=== PATIENT | male | born 1955 | race Caucasian/White ===

== ENCOUNTER 2017-11-25 12:00 | Outpatient (CLI) | payer OTHER ==
--- NOTE | 2017-11-25 14:30 | MRI ---
MRI LUMBAR SPINE PERFORMED WITHOUT CONTRAST ENHANCEMENT: Date: 11/25/17 HISTORY: Chronic low back pain, right leg radiculopathy. FINDINGS: Vertebral bodies are normal in height. Severe degenerative disc narrowing is seen at all vertebral kenia dy levels. No significant periaortic adenopathy is visualized. T2 hyperintense lesion involving the r ight kidney is statistically most likely a cyst. T11-12: Posterior osteophytic and disc changes are associated with a mild to moderate degree of canal narrowi ng with degenerative facet changes. T12-L1: Degenerative facet changes without significant canal or foraminal stenosis. L1-2: Disc bulge with facet hypertrophic changes is seen. No canal stenosis. There is some mild to moderate left-sided foraminal narrowing. L2-3: Disc bulge with facet and ligamentous hypertrophic changes are associated with a severe degree of can al stenosis and marked right-sided foraminal narrowing. L3-4: Severe canal stenosis is present at this level. Asymmetric right-sided facet changes are present. The re is moderate bilateral foraminal narrowing noted. L4-5: Moderately severe canal stenosis also present at this level, again with prominent degenerative facet changes. There is fairly pronounced bilateral foraminal stenosis. L5-S1: No central canal stenosis. There is some mild to moderate left-sided foraminal narrowing. IMPRESSION: Multilevel canal and foraminal stenosis. POS: [facility]
--- NOTE | 2017-11-25 14:46 | MRI ---
MRI CERVICAL SPINE: History: Cervical radiculopathy. M54.12 Technique: Multiplanar, multisequence noncontrast enhanced MRI images of the cervical spine obtained. FINDINGS: C1-2: Unremarkable. C2-3: There is a broad based central disc bulge minimally but not significantly compressing the theca l sac. The right neural foramen is patent. There is moderate left C2-3 neural foraminal narrowing due to osteophyte encroachment into the left C2-3 neural foramen. C3-4: Disc desiccation is seen. There is a broad based disc osteophyte complex centrally compressing the thecal sac resulting in moderate to severe central and lateral recess stenosis. There is severe b ilateral C3-4 neural foraminal narrowing due to uncal vertebral osteophyte hypertrophy. } C4-5: Disc desiccation is seen. There is a broad based disc osteophyte complex centrally compressing the thecal sac resulting in a moderate degree of central spinal stenosis. There is moderate to severe bilateral C4-5 neural foraminal narrowing due to uncal vertebral osteophyte hypertrophy. C5-6: Disc desiccation is seen. There is a broad based disc osteophyte complex centrally compressing the thecal sac resulting in severe C5-6 central spinal stenosis compressing the thecal sac and spinal cord. There is moderate right C5-6 and mild left C5-6 neural foraminal narrowing due to osteophyte e ncroachment. C6-7: There is disc desiccation. There is broad based disc osteophyte complex centrally compressing t he thecal sac resulting in a moderate degree of central stenosis. Moderate to severe bilateral C6-7 n eural foraminal narrowing is seen due to uncal vertebral osteophyte hypertrophy. C7-T1: Disc desiccation is seen. There is a broad based disc osteophyte complex centrally compressing the thecal sac resulting in moderate central spinal stenosis. Mild lateral recess stenosis also seen bilaterally. There is mild bilateral C7-T1 neural foraminal narrowing due to osteophyte encroachment . There is an area of lucency in the paracentral aspect of the body of the odontoid. This may represent a possible synovial cyst which is eroded into the CT vertebra. Correlation with high resolution CT i mages may be of use to fully characterize. IMPRESSION: Multilevel central disc osteophyte complexes with compression of the thecal sac and neural foraminal narrowing. The most significant degree of stenosis appears to be C3-4, lesser in degree C4-5 as well as the C5-6 level. There are multiple levels of thecal sac compression with some cord compression but no definite evidence of cord signal abnormality seen. POS: [facility]
--- NOTE | 2017-11-25 14:54 | RAD ---
FOUR VIEWS CERVICAL SPINE INCLUDING AP AND LATERAL AND FLEXION AND XTENSION VIEWS OF CERVICAL SPINE: HISTORY: Cervical radiculopathy, M54.12. FINDINGS: Four views cervical spine demonstrate mild anterolisthesis of C4 on C5. Disk space height loss is se en at C5-6 and C6-7. There is also disk space height loss with anterior and posterior osteophytes at C3-4. No significant evidence of lb- or retrolisthesis seen on flexion or extension views. IMPRESSION: Changes of spondylosis with disk space height loss and anterior and posterior osteophytes at C3-4, C5 -6, and C6-7. No significant evidence of cervical spine fracture is seen. POS: [facility]
--- NOTE | 2017-11-25 15:09 | RAD ---
LUMBAR SPINE 4 VIEWS: HISTORY: Lumbar radiculopathy. COMPARISON: None. CORRELATION: Lumbar spine MRI 12/05/2017. FINDINGS: AP, lateral neutral, lateral flexion, and lateral extension of the lumbar spine demonstrate 5 lumbar- type vertebral bodies. There is loss of disk space height and osteophyte formation throughout the nini mbar spine. Prominent osteophytes are noted throughout the lumbar spine. In the neutral weight bear ing position, there is no significant spondylolisthesis. No abnormal motion upon extension or flexio n. There appears to be vacuum disk phenomenon at L1-L2. There is extensive posterior element hypertroph y throughout the lumbar spine. IMPRESSION: 1. Degenerative change of the lumbar spine without significant spondylolisthesis or spondylosis. 2. Degenerative changes posterior elements as above. 3. Extensive degenerative change of lumbar spine as above. 3. Osteophyte formation as detailed above. POS: [facility]
== END 2017-11-25 12:01 | disposition home or self-care (01) ==
LOC: BICMRI 12:00
PROVIDERS: ATTEND Physician Assistant Surgical
DX: M47.26 Other spondylosis with radiculopathy, lumbar region (principal); M47.22 Other spondylosis with radiculopathy, cervical region; M48.061 Spinal stenosis, lumbar region without neurogenic claudication; M99.83 Other biomechanical lesions of lumbar region; M99.81 Other biomechanical lesions of cervical region
CPT/HCPCS: 72050; 72110; 72141; 72148

== ENCOUNTER 2018-12-04 07:11 | Outpatient (CLI) | payer MEDICARE ==
[2018-12-04 11:25] LABS: Hemoglobin 12.3 g/dL (14.0-18.0); Mean Corpuscular HGB CONC 33.8 g/dL (32.0-36.0); Mean Corpuscular Hemoglobin 33.5 pg (27.0-31.0); Mean Corpuscular Volume 99.2 fL (78.0-98.0); Mean Platelet Volume 7.8 fL (7.4-10.4); Platelet Count 197 thou/uL (130-400); RBC Distribution Width 11.1 % (11.5-14.5); Red Blood Cell (RBC) Count 3.66 mill/uL (4.70-6.10); White Blood Cell (WBC) Count 6.3 thou/uL (4.8-10.8)
[2018-12-04 11:30] LABS: PTT 30.9 SEC (22.9-36.1); Prothrombin Time 12.9 SEC (12.0-14.7)
== END 2018-12-04 07:12 | disposition home or self-care (01) ==
LOC: LABBT 07:11
PROVIDERS: ATTEND Surgery
DX: Z01.818 Encounter for other preprocedural examination (principal); M47.12 Other spondylosis with myelopathy, cervical region; M48.02 Spinal stenosis, cervical region
CPT/HCPCS: 85027; 85610; 85730; 87081; 93005; 93010

== ENCOUNTER 2018-12-04 08:55 | Outpatient (CLI) | payer MEDICARE ==
--- NOTE | 2018-12-04 12:39 | CT ---
CT CERVICAL SPINE WITHOUT CONTRAST: INDICATIONS: Spondylosis. Neck pain. FINDINGS: There are degenerative changes throughout the cervical spine. Loss of disk space is most pronounced a t C3-C4, C5-C6 and C6-C7. There are anterior and lateral osteophytes in the cervical vertebrae and th ere is posterior spondylosis at multiple levels. Benign cystic changes are seen in the C2 and C4 vert ebrae. C2-C3: At the C2-C3 disk there is a broad-based disk bulge abutting the anterior cord. Facet hypertro phy is prominent and there is left foraminal stenosis due to facet and uncinate hypertrophy. C3-C4: Posterior disk bulge and spondylosis is prominent. These changes produce cord compression and moderate central canal stenosis. Bilateral foraminal stenosis is present with severe foraminal stenos is on the left at this level. C4-C5: Posterior disk bulge and spondylosis abut the anterior cord. Mild foraminal narrowing at this level. C5-C6: Posterior spondylosis is prominent centrally and to the right. These changes produce cord comp ression anteriorly on the right with moderate central canal stenosis. Right foraminal stenosis second iris to facet and uncinate hypertrophy. C6-C7: There is slight posterior listhesis. Mild disk bulge and spondylosis. These changes do mildly compress the cord and there is bilateral foraminal stenosis secondary to facet and uncinate hypertrop hy. C7-T1: Slight anterior listhesis. Posterior disk bulge and spondylosis abut and mildly compress the c ord. Evaluation at this level is limited due to artifact from soft tissue attenuation. IMPRESSION: Degenerative disk changes at multiple levels with posterior spondylitic changes producing cord compre ssion and foraminal stenosis at multiple levels as described. POS: [facility]
== END 2018-12-04 08:56 | disposition home or self-care (01) ==
LOC: CT 08:55
PROVIDERS: ATTEND Surgery
DX: M47.12 Other spondylosis with myelopathy, cervical region (principal); M50.00 Cervical disc disorder with myelopathy, unspecified cervical region; M48.02 Spinal stenosis, cervical region
CPT/HCPCS: 72125; 85027; 85610; 85730; 87081; 93005

== ENCOUNTER 2018-12-04 10:00 | Inpatient (IN) | payer MEDICARE ==
[2018-12-04 12:00] LABS: ALT (SGPT) 18 U/L (8-55); AST (SGOT) 16 U/L (5-34); Albumin 4.6 g/dL (3.4-4.8); Alkaline Phosphatase 71 U/L (40-110); Anion Gap 12 mmol/L (10-20); BUN (Urea Nitrogen) 25 mg/dL (8.4-25.7); Bilirubin, Total 0.6 mg/dL (0.2-1.2); Calc. Creatinine Clearance 87 mL/min (70-130); Calcium 9.6 mg/dL (7.8-10.44); Carbon Dioxide 25 mmol/L (23-31); Cardiac Risk 2.5 (Less than 4.5); Chloride 97 mmol/L (98-107); Cholesterol 155 mg/dl (< 200 Desired); Estimated GFR-MDRD 55; Globulin 2.5 g/dL (2.4-3.5); Glucose 91 mg/dL (80-115); HDL Cholesterol 62 mg/dL (>60 Neg Risk); LDL Cholesterol, Calculated 76 mg/dL; Magnesium 1.8 mg/dL (1.6-2.6); Protein, Total 7.1 g/dL (5.8-8.1); Sodium 130 mmol/L (136-145); Triglycerides 87 mg/dL (Less than 150)
[2018-12-11] MEDS ORDERED: Sodium Chloride 0.9% 20 ML ONE (06:27)
[2018-12-11] MEDS ORDERED: Bacitracin Zinc Ointment 30 gm TUBE ONE (06:27)
[2018-12-11] MEDS ORDERED: Thrombin 5000 UNITS/5 ML VIAL ONE (06:27)
[2018-12-11] MEDS ORDERED: Albumin 5% 500 ML ONE (06:53)
[2018-12-11] MEDS ORDERED: Fentanyl 100 MCG/2 ML VIAL ONE ×4 (07:13→15:39)
[2018-12-11] MEDS ORDERED: Ketamine 50 MG/ML (10ML VIAL) ONE (08:42)
[2018-12-11] MEDS ORDERED: Vecuronium 10 MG VIAL ONE ×2 (09:53→12:08)
[2018-12-11] MEDS ORDERED: Metoclopramide HCl 10 MG/2 ML VIAL ONE (12:08)
[2018-12-11] MEDS ORDERED: Dexamethasone 20 MG/5 ML VIAL ONE (12:08)
[2018-12-11] MEDS ORDERED: PHENYLEPHRINE-NS 100 MCG/ML 10 ML SYRINGE ONE (12:08)
[2018-12-11] MEDS ORDERED: Rocuronium Bromide 10 MG/ML (10ML VIAL) ONE (12:08)
[2018-12-11] MEDS ORDERED: Esmolol 100 MG/10 ML VIAL ONE (12:08)
[2018-12-11] MEDS ORDERED: Ondansetron PF 4 MG/2 ML Vial ONE (12:08)
[2018-12-11] MEDS ORDERED: Lidocaine 1% PF 5 ML VIAL ONE (12:08)
[2018-12-11] MEDS ORDERED: PROPOFOL 200 MG/20 ML VIAL ONE (12:08)
[2018-12-11] MEDS ORDERED: Glycopyrrolate 0.2 MG/ML 5 ML SYRINGE ONE (12:08)
[2018-12-11] MEDS ORDERED: Midazolam HCl 2 mg/2 ml Vial ONE (13:30)
[2018-12-11] MEDS ORDERED: HYDROmorphone 2 MG/ML VIAL SLOW IVP PRN (14:30)
[2018-12-11] MEDS ORDERED: PACU-Morphine 4MG/ML VIAL SLOW IVP PRN (14:30)
[2018-12-11] MEDS ORDERED: Promethazine HCl 25 MG/ML VIAL IM PRN ×2 (14:30→15:57)
[2018-12-11] MEDS ORDERED: Promethazine HCl 25 MG/ML VIAL SLOW IVP PRN (14:30)
[2018-12-11] MEDS ORDERED: Morphine Sulfate 2 MG/ML SYRINGE SLOW IVP PRN (14:30)
[2018-12-11] MEDS ORDERED: Ondansetron HCl/PF 4 MG/2 ML Vial IVP PRN (14:30)
[2018-12-11] MEDS ORDERED: Acetaminophen 325 MG TAB PO PRN (15:20)
[2018-12-11] MEDS ORDERED: Mag-Al 1200 mg/1200 mg/30 ML UDCUP PO PRN (15:20)
[2018-12-11] MEDS ORDERED: Ondansetron PF 4 MG/2 ML Vial IVP PRN ×2 (15:20→15:57)
[2018-12-11] MEDS ORDERED: Bisacodyl 10 MG SUPP PR PRN (15:20)
[2018-12-11] MEDS ORDERED: Fleet Enema 133 ML BOT PR PRN (15:20)
[2018-12-11] MEDS ORDERED: Milk Of Magnesia 30 ML UDCUP PO PRN (15:20)
[2018-12-11] MEDS ORDERED: Diazepam 10 MG/2 ML SYRINGE IVP PRN (15:41)
[2018-12-11] MEDS ORDERED: diphenhydrAMINE 25 MG CAP PO PRN (15:57)
[2018-12-11] MEDS ORDERED: diphenhydrAMINE 50 MG/ML VIAL IM PRN (15:57)
[2018-12-11] MEDS ORDERED: diphenhydrAMINE 50 MG/ML VIAL IVP PRN (15:57)
[2018-12-11] MEDS ORDERED: Naloxone HCl 0.4 mg/ml Vial IV PRN (15:57)
[2018-12-11] MEDS ORDERED: Zolpidem Tartrate 5 MG TAB PO PRN (15:57)
[2018-12-11] MEDS ORDERED: [UNRECOGNIZED DRUG - REMARK] FS SCH (16:00)
[2018-12-11] MEDS ORDERED: Communication Order-Pharmacy FS PRN (16:00)
[2018-12-11] MEDS ORDERED: HYDROmorphone 2 MG/ML VIAL ONE (16:03)
[2018-12-11 17:11] VITALS: BMI 30.9
[2018-12-11] MEDS: Sodium Chloride 0.9% 1,000 ML IV SCH (17:42)
[2018-12-11] MEDS: CEFAZOLIN 2 GM in Premix Bag 1 BAG IVPB SCH (18:35)
[2018-12-11] MEDS: Ketorolac Tromethamine 30 MG/ML VIAL IVP PRN (19:45)
[2018-12-12] MEDS: CEFAZOLIN 2 GM in Premix Bag 1 BAG IVPB SCH ×4 (00:10→16:51)
[2018-12-12] MEDS: Ketorolac Tromethamine 30 MG/ML VIAL IVP PRN ×4 (01:02→20:22)
[2018-12-12] MEDS: Sodium Chloride 0.9% 1,000 ML IV SCH (05:18)
[2018-12-12 05:37] LABS: #Lymphocytes 1.2 thou/uL (1.20-3.40); #Monocytes 1.3 thou/uL (0.11-0.59); #Neutrophils 7.8 thou/uL (1.40-6.50); %Basophils 0.3 % (0.0-1.0); %Eosinophils 0.1 % (0.0-10.0); %Lymphocytes 11.8 % (21.0-51.0); %Monocytes 12.2 % (0.0-10.0); %Neutrophils 75.5 % (42.0-75.0); Hemoglobin 9.9 g/dL (14.0-18.0); Mean Corpuscular HGB CONC 34.4 g/dL (32.0-36.0); Mean Corpuscular Volume 98.8 fL (78.0-98.0); Mean Platelet Volume 7.4 fL (7.4-10.4); Platelet Count 197 thou/uL (130-400); Red Blood Cell (RBC) Count 2.92 mill/uL (4.70-6.10); White Blood Cell (WBC) Count 10.4 thou/uL (4.8-10.8)
[2018-12-12 05:59] LABS: Anion Gap 11 mmol/L (10-20); BUN (Urea Nitrogen) 19 mg/dL (8.4-25.7); Calc. Creatinine Clearance 91 mL/min (70-130); Calcium 8.7 mg/dL (7.8-10.44); Carbon Dioxide 26 mmol/L (23-31); Chloride 98 mmol/L (98-107); Estimated GFR-MDRD 62; Glucose 111 mg/dL (80-115); Sodium 131 mmol/L (136-145)
--- NOTE | 2018-12-12 08:21 | OP ---
DATE OF PROCEDURE: 12/11/2018 LOCATION: OR 11. WOUND CLASSIFICATION: Type 1 wound. ORGANIC GARDENING TEACHER: Mikael Gonzalez PA-C PREPROCEDURE DIAGNOSIS: Cervical stenosis circumferentially with spinal cord compression, neurologic decline. POSTPROCEDURE DIAGNOSIS: Cervical stenosis circumferentially with spinal cord compression, neurologic decline. PROCEDURES PERFORMED: 1. Anterior C3-C4, C4-C5, C5-C6, and C6-C7 diskectomies for decompression of spinal cord, placement of interbody spacer, packed with local bone autograft obtained at same incision, allograft for arthrodesis C3-C4, C4-C5, C5-C6, and C6-C7. 2. Anterior cervical plate and screw fixation, C3, C4, C5, C6, and C7. 3. Fusion C3, C4, C5, C6, C7 anteriorly. 4. Use of operative microscope for microdissection. 5. Cervical laminectomy, C3, C4, C5, C6, C7. 6. Posterolateral mass fusion, C3, C4, C5, C6, C7. 7. Instrumentation placed posterolaterally, C3, C4, C5, C6, C7. DESCRIPTION OF PROCEDURE: After informed consent was obtained from the patient, the patient was brought to the OR. Proper patient, pause, and identification were carried out. He was placed under excellent general endotracheal anesthesia and positioned supine on the OR table and kept in cervical spine in neutral position. All appropriate points were padded. We identified the C3, C4, C5, C6, and C7 segments and an anterior right oblique sided incision to allow for approach to this region. This area was sterilely cleansed, prepared, and draped. Proper patient, pause, and identification were carried out. The wound was then opened with combination of sharp, monopolar, and blunt dissection, and now we proceeded lateral to the larynx, pharynx, tracheoesophageal bundle, and medial to the right carotid sheath. We identified the prevertebral layer of deep cervical fascia and the C3, C4, C5, C6, and C7 segments were exposed with retraction of the longus colli muscles bilaterally. Distraction then occurred at C3-C4 diskectomy. We then performed a C3-C4 decompression of spinal cord nerve roots. Interbody space was packed with graft and placed at C3-C4 for initiation of arthrodesis. Following endplate preparation, the procedure was then repeated at C4-C5, C5-C6, and C6-C7, all in its entirety. We reconstructed the patient's deformity into normal cervical lordosis. Microscope was used for microdissection. Microscope was removed. Anterior cervical plate and screw fixation then occurred at C3, C4, C5, C6, and C7 with final tightening. We then closed the wound in anatomic layers following meticulous hemostasis and irrigation. The patient was then placed in pins and flipped prone, and linear ceci was drawn out posteriorly to allow for approach at C3, C4, C5, C6, C7 segments posteriorly. This region was sterilely cleansed, prepared, and draped. Proper patient, pause, and identification were carried out. The wound was then opened with combination of sharp, monopolar, and blunt dissection. C3, C4, C5, C6, and C7 lamina, spinous processes, and facet complexes were exposed with protection of C2-C3 and the C7-T1. We then decorticated the posterolateral regions with local bone autograft and allograft at the time of incision out over this region for the initiation of arthrodesis. The wound was copiously irrigated. Meticulous hemostasis performed throughout. The wound was then closed in anatomic layers following with placing vancomycin powder. The patient emerged from anesthesia. Job ID: [id number]
[2018-12-12] MEDS: Amlodipine 10 MG TAB PO SCH (08:33)
[2018-12-12] MEDS: Atorvastatin Calcium 40 MG TAB PO SCH (08:34)
[2018-12-12] MEDS: Cyanocobalamin (Vitamin B-12) 1,000 MCG TAB PO SCH (08:35)
[2018-12-12] MEDS: Furosemide 20 MG TAB PO SCH (08:36)
[2018-12-12] MEDS: Hydrochlorothiazide 25 MG TAB PO SCH (08:36)
[2018-12-12] MEDS: Famotidine 20 MG TAB PO SCH (08:36)
[2018-12-12] MEDS: Losartan 25 MG TAB PO SCH (08:36)
[2018-12-12] MEDS: Multivit, Therapeutic 1 TAB PO SCH (08:37)
[2018-12-12] MEDS: tiZANidine HCl 4 MG TAB PO PRN ×2 (08:38→16:32)
[2018-12-12] MEDS ORDERED: Dexamethasone 4 mg/ml Vial SLOW IVP SCH (09:00)
[2018-12-12] MEDS ORDERED: (Gluc Su/Chondro Su A/Vit C/Mn [Glucosamine 1,500 Complex Capsu PO SCH (09:00)
[2018-12-12] MEDS ORDERED: Pantoprazole 40 MG VIAL IVP SCH (09:00)
--- NOTE | 2018-12-12 12:59 | PRG ---
DATE OF SERVICE: 12/12/2018 Mr. Guardado is postop day #1, following ACDF with Dr. Garcia yesterday. He is in the ICU for severe myelopathy, but today he looks to be doing extraordinarily well. He is seated at the bedside chair, drinking. He is on a full liquid diet at the moment. He reports significant dysphagia, but has no dysphonia. He has been ambulating in the halls in the ICU already today. We will move him to the surgical floor this afternoon. His drain output has been a total of 65 in the last 14 hours. We will leave that probably until tomorrow morning. He is pending PT and OT evaluations and then hopefully rehab placement, but this will likely happen after the weekend. Job ID: [id number]
[2018-12-12] MEDS: fentaNYL Citrate/PF 2,000 MCG in Sodium Chloride 0.9% 60 ML IV PRN (14:02)
[2018-12-12] MEDS ORDERED: CEFAZOLIN 2 GM in Premix Bag 1 BAG IVPB SCH (16:00)
[2018-12-13] MEDS: tiZANidine HCl 4 MG TAB PO PRN ×3 (00:24→18:27)
[2018-12-13] MEDS: CEFAZOLIN 2 GM in Premix Bag 1 BAG IVPB SCH ×3 (00:24→15:39)
[2018-12-13] MEDS ORDERED: guaiFENesin ER 600 MG TAB PO PRN (07:25)
[2018-12-13] MEDS: Losartan 25 MG TAB PO SCH (09:00)
[2018-12-13] MEDS: Famotidine 20 MG TAB PO SCH (09:02)
[2018-12-13] MEDS: Furosemide 20 MG TAB PO SCH (09:04)
[2018-12-13] MEDS ORDERED: Chloraseptic Spray 180 ml Bottle PO PRN (09:04)
[2018-12-13] MEDS: Hydrochlorothiazide 25 MG TAB PO SCH (09:04)
[2018-12-13] MEDS: Multivit, Therapeutic 1 TAB PO SCH (09:11)
[2018-12-13] MEDS: Amlodipine 10 MG TAB PO SCH (09:11)
[2018-12-13] MEDS: Atorvastatin Calcium 40 MG TAB PO SCH (09:11)
[2018-12-13] MEDS: Cyanocobalamin (Vitamin B-12) 1,000 MCG TAB PO SCH (09:11)
[2018-12-13] MEDS: fentaNYL Citrate/PF 2,000 MCG in Sodium Chloride 0.9% 60 ML IV PRN (10:01)
[2018-12-13] MEDS: Diabetic Tussin 200 MG/10 ML UDCUP PO PRN ×2 (10:02→15:39)
--- NOTE | 2018-12-13 11:08 | PRG ---
DATE OF SERVICE: 12/13/2018 SUBJECTIVE: Mr. Guardado is postoperative day 2 following anterior posterior neck fusion with Dr. Garcia. He has significant dysphagia, was on Toradol and then last night this was discontinued. He apparently had a really rough night. He was coughing and producing a lot of phlegm and had extreme difficulty swallowing. This is still the case this morning. His drain because of the coughing seems to have increased his output, so we will leave that in. This morning, we will start some dexamethasone twice a day. I will put him on Protonix for GI prophylaxis. We will also start him on guaifenesin and Chloraseptic spray p.r.n. He is awaiting rehab and Case Management has submitted all of their paperwork. I will reach out this morning to the weekend liaison at [facility] to come by and have a discussion with them. I went over this with the patient and his at bedside. They anticipate and look forward to that conversation, and hopefully, will be able to move forward with rehab placement in the next 48 hours. Otherwise, the patient seems to be doing well, will ambulate more in the hallways. I will plan to see him in the morning. Job ID: [id number]
[2018-12-13] MEDS ORDERED: Dexamethasone 10 MG/ML VIAL SLOW IVP SCH (15:30)
[2018-12-13] MEDS: Dexamethasone 4 MG in Sodium Chloride 0.9% 50 ML IVPB SCH (21:49)
[2018-12-14] MEDS: CEFAZOLIN 2 GM in Premix Bag 1 BAG IVPB SCH ×2 (00:32→08:38)
[2018-12-14] MEDS: tiZANidine HCl 4 MG TAB PO PRN ×2 (02:42→10:26)
--- NOTE | 2018-12-14 07:25 | PRG ---
DATE OF SERVICE: 12/14/2018 Mr. Mckay is resting comfortably in his room. He has improved pain management as compared to the last 24 to 48 hours. He continues to use a STEEL BUFFER, although our plan today is to transition him from the STEEL BUFFER to oral medicines. Dysphagia has made that somewhat prohibitive in the last couple of days, but I think he is swallowing better, where he can tolerate it at this point in time. I removed the drain anteriorly as there was minimal output. I have also removed the anterior bandage. His main pain complaint is that of posterior cervical neck pain. He has been mobilizing slowly. We will continue to mobilize him as we transition him from the STEEL BUFFER to oral medicines. We await word from rehab as to whether he has been approved. Once approval has taken place, he can transition to there at any time. Job ID: [id number]
[2018-12-14] MEDS: Dexamethasone 4 MG in Sodium Chloride 0.9% 50 ML IVPB SCH (08:40)
[2018-12-14] MEDS: Losartan 25 MG TAB PO SCH (08:41)
[2018-12-14] MEDS: Cyanocobalamin (Vitamin B-12) 1,000 MCG TAB PO SCH (08:41)
[2018-12-14] MEDS: Atorvastatin Calcium 40 MG TAB PO SCH (08:42)
[2018-12-14] MEDS: Hydrochlorothiazide 25 MG TAB PO SCH (08:42)
[2018-12-14] MEDS: Famotidine 20 MG TAB PO SCH (08:43)
[2018-12-14] MEDS: Furosemide 20 MG TAB PO SCH (08:43)
[2018-12-14] MEDS: Amlodipine 10 MG TAB PO SCH (08:43)
[2018-12-14] MEDS: Multivit, Therapeutic 1 TAB PO SCH (08:43)
[2018-12-14] MEDS ORDERED: Pantoprazole 40 MG VIAL IVP SCH (09:00)
[2018-12-14] MEDS ORDERED: HYDROcodone/Acetaminophen 7.5/325 mg Tablet PO PRN (09:43)
[2018-12-14] MEDS: HYDROcodone/Acetaminophen 7.5/325 mg Tablet PO PRN ×2 (10:26→14:45)
[2018-12-14 11:25] VITALS: BP 115/69; TEMP 97.6
== END 2018-12-14 16:37 | DRG 454 ==
LOC: SURG A 12-11 05:41 → CCU 12-11 13:24 → SURG B 12-12 14:05
PROVIDERS: ADMIT Surgery; ATTEND Surgery
PROC: 0RG20A0 Fusion of 2 or more Cervical Vertebral Joints with Interbody Fusion Device, Anterior Approach, Anterior Column, Open Approach (ICD-10-PCS; principal; 2018-12-11)
PROC: 0RG2071 Fusion of 2 or more Cervical Vertebral Joints with Autologous Tissue Substitute, Posterior Approach, Posterior Column, Open Approach (ICD-10-PCS; 2018-12-11)
PROC: 01N10ZZ Release Cervical Nerve, Open Approach (ICD-10-PCS; 2018-12-11)
PROC: 0RB30ZZ Excision of Cervical Vertebral Disc, Open Approach (ICD-10-PCS; 2018-12-11)
DX: M48.02 Spinal stenosis, cervical region (principal); M47.12 Other spondylosis with myelopathy, cervical region; E78.5 Hyperlipidemia, unspecified; I10 Essential (primary) hypertension; E66.9 Obesity, unspecified; R26.9 Unspecified abnormalities of gait and mobility; R13.10 Dysphagia, unspecified; Z68.31 Body mass index [BMI] 31.0-31.9, adult
CPT/HCPCS: 36415; 76000; 80048; 80053; 80061; 83735; 85025; 86850; 86900; 86901; C9113; J0131; J0690; J1100; J1170; J1885; J2250; J3010; J3370; J3490; P9045

== ENCOUNTER 2020-01-13 13:06 | Inpatient (IN) | payer MEDICARE ==
[2020-01-13 13:57] LABS: #Lymphocytes 0.5 thou/uL (1.20-3.40); #Monocytes 0.3 thou/uL (0.11-0.59); #Neutrophils 7.8 thou/uL (1.40-6.50); %Basophils 0.1 % (0.0-1.0); %Eosinophils 0.1 % (0.0-10.0); %Lymphocytes 6.2 % (21.0-51.0); %Monocytes 3.3 % (0.0-10.0); %Neutrophils 90.4 % (42.0-75.0); Hemoglobin 12.1 g/dL (14.0-18.0); Mean Corpuscular HGB CONC 35.5 g/dL (32.0-36.0); Mean Corpuscular Hemoglobin 34.4 pg (27.0-31.0); Mean Corpuscular Volume 96.7 fL (78.0-98.0); Mean Platelet Volume 7.9 fL (7.4-10.4); Platelet Count 173 thou/uL (130-400); RBC Distribution Width 11.6 % (11.5-14.5); Red Blood Cell (RBC) Count 3.53 mill/uL (4.70-6.10); White Blood Cell (WBC) Count 8.7 thou/uL (4.8-10.8)
[2020-01-13] MEDS ORDERED: Dexamethasone 10 MG/ML VIAL ONE (14:08)
--- NOTE | 2020-01-13 14:16 | RAD ---
Exam: Chest one view HISTORY:Hypoxia. COVID positive patient. Comparison: None FINDINGS: Cardiac silhouette: Normal Aorta: Unremarkable Pulmonary vessels: Normal Costophrenic angles: Clear LUNGS: Multifocal interstitial and alveolar opacities. Pneumothorax: None Osseous abnormalities: Cervical fusion hardware, incompletely evaluated IMPRESSION: Multifocal COVID pneumonia.
[2020-01-13 14:20] LABS: ALT (SGPT) 46 U/L (8-55); AST (SGOT) 74 U/L (5-34); Albumin 3.8 g/dL (3.4-4.8); Alkaline Phosphatase 134 U/L (40-110); Anion Gap 18 mmol/L (10-20); BUN (Urea Nitrogen) 13 mg/dL (8.4-25.7); Bilirubin, Total 1.2 mg/dL (0.2-1.2); Calc. Creatinine Clearance 0 mL/min (70-130); Calcium 8.8 mg/dL (7.8-10.44); Carbon Dioxide 17 mmol/L (23-31); Chloride 94 mmol/L (98-107); Globulin 3.6 g/dL (2.4-3.5); Glucose 115 mg/dL (80-115); Protein, Total 7.4 g/dL (5.8-8.1); Sodium 125 mmol/L (136-145)
--- NOTE | 2020-01-13 14:38 | PDOC.HHP ---
Hospitalist HPI - History of Present Illness Shortness of breath History of Present Illness: Mr. Guardado is a 65-year-old male with a past medical history of mild intermittent asthma, hypertension, hyperlipidemia, GERD, coronary artery disease who presents to the emergency room for worsening shortness of breath. Patient reports that approximately 6 days ago he started feeling subjective fevers, mild cough, body aches. Day prior to admission patient tested positive for COVID-19. Morning of admission patient reports that he became short of breath when walking small distances around his house. Patient found to be hypoxic to 80s on room air, desaturating down to 78 when transferring about the room.Patient maintaining O2 sat at 94% on 2 L nasal cannula currently. He denies chest pain, palpitations. Denies dizziness or lightheadedness. Denies numbness, weakness. In emergency room vital signs 132/79, 94, 27, 100.0, 91% on 3 L nasal cannula. H&H 12.1/34.1. WBC 8.7. Chest x-ray showed multifocal Covid pneumonia. Sodium 125, potassium 4.0. BUN/CR 13/0.98. AST/ALT 74/46. Patient received 10 mg of Decadron IV. Hospitalist ROS - Review of Systems Constitutional: reports: fever, chills, weakness, malaise Eyes: denies: pain, vision change, conjunctivae inflammation, eyelid inflammation, redness, other ENT: reports: nose congestion, throat pain. denies: ear pain, ear discharge, nose pain, nose discharge, mouth pain, mouth swelling, throat swelling, other Respiratory: reports: cough, shortness of breath, SOB with excertion. denies: dry, hemoptysis, pleuritic pain, sputum, wheezing, other Cardiovascular: denies: chest pain, palpitations, orthopnea, paroxysmal noc. dyspnea, edema, light headedness, other Gastrointestinal: denies: nausea, vomiting, abdominal pain, diarrhea, constipation, melena, hematochezia, other Genitourinary: denies: dysuria, frequency, incontinence, hematuria, retention, other Musculoskeletal: denies: neck pain, shoulder pain, arm pain, back pain, hand pain, leg pain, foot pain, other Skin: denies: rash, lesions, jozef, bruising, other Neurological: denies: weakness, numbness, incoordination, change in speech, confusion, seizures, other - Medication Medications: Home medications include Albuterol inhaler Atenolol Atorvastatin Famotidine Felodipine Aspirin Omeprazole No known drug allergies Hospitalist History - Past Medical History Other Medical History: Past medical history includes Mild intermittent asthma Hypertension Hyperlipidemia Coronary artery disease GERD - Past Surgical History Other Surgical History: Past surgical history includes ACDF - Family History Other Family History: No pertinent history - Social History Smoking Status: Never smoker Alcohol: reports: None Drugs: reports: none Living Situation: With Family Activity level: independent ambulation - Exam General Appearance: NAD, awake alert Eye: PERRL, anicteric sclera ENT: normocephalic atraumatic, no oropharyngeal lesions, moist mucosa Neck: supple, symmetric, no JVD, no thyromegaly, no lymphadenopathy, no carotid bruit Heart: RRR, no murmur, no gallops, no rubs, normal peripheral pulses Respiratory: normal chest expansion, no tachypnea Respiratory - other findings: Rales throughout Gastrointestinal: soft, non-tender, non-distended, normal bowel sounds, no palpable masses, no hepatomegaly, no splenomegaly, no bruit Extremities: no cyanosis, no clubbing, no edema Skin: normal turgor, no lesions, no rashes Neurological: no weakness, no focal deficits, no new deficit Musculoskeletal: normal tone, normal strength, no muscle wasting Psychiatric: normal affect, normal behavior, A&O x 3 Hospitalist Results - Labs Result Diagrams: 01/13/20 13:45 01/13/20 13:45 Lab results: WBC 8.7 thou/uL (4.8-10.8) 01/13/20 13:45 Hgb 12.1 g/dL (14.0-18.0) L 01/13/20 13:45 Hct 34.1 % (42.0-52.0) L 01/13/20 13:45 MCV 96.7 fL (78.0-98.0) 01/13/20 13:45 Plt Count 173 thou/uL (130-400) 01/13/20 13:45 Neutrophils % 90.4 % (42.0-75.0) H 01/13/20 13:45 Sodium 125 mmol/L (136-145) L 01/13/20 13:45 Potassium 4.0 mmol/L (3.5-5.1) 01/13/20 13:45 Chloride 94 mmol/L (98-107) L 01/13/20 13:45 Carbon Dioxide 17 mmol/L (23-31) L 01/13/20 13:45 BUN 13 mg/dL (8.4-25.7) 01/13/20 13:45 Creatinine 0.98 mg/dL (0.7-1.3) 01/13/20 13:45 Glucose 115 mg/dL (80-115) 01/13/20 13:45 Calcium 8.8 mg/dL (7.8-10.44) 01/13/20 13:45 Total Bilirubin 1.2 mg/dL (0.2-1.2) 01/13/20 13:45 AST 74 U/L (5-34) H 01/13/20 13:45 ALT 46 U/L (8-55) 01/13/20 13:45 Alkaline Phosphatase 134 U/L (40-110) H 01/13/20 13:45 Serum Total Protein 7.4 g/dL (5.8-8.1) 01/13/20 13:45 Albumin 3.8 g/dL (3.4-4.8) 01/13/20 13:45 Hospitalist H&P A/P - Plan Plan: 65-year-old possible history of mild intermittent asthma, hypertension, hyperlipidemia, GERD, CAD presents with acute hypoxic respiratory failure secondary to Covid pneumonia. COVID-19 pneumonia Patient tested positive for Covid a day prior to admission. Symptoms started approximately 6 days prior to admission. Patient hypoxic to 80s on room air. Now requiring 3 L nasal cannula. Now 94%. Febrile to 100.0. Chest x-ray showed multifocal Covid pneumonia. Patient received Decadron in the emergency room. We will continue Decadron and also start on empiric CAP coverage. Plan Continue Decadron Ceftriaxone, azithromycin Supplemental oxygen as needed Tylenol, Robitussin Convalescent plasma We will see if patient is candidate for remdesivir Acute hypoxic respiratory failure Acute hypoxic respiratory failure secondary to COVID-19 pneumonia. Patient hypoxic on room air to 80s, requiring 3 L nasal cannula. We will closely monitor respiratory status. Patient is full code. Plan Supplemental oxygen as needed Closely monitor respiratory status Hyponatremia Patient hyponatremic to 125 on admission. No known history of abnormal sodium. Likely hypovolemic hyponatremia secondary to dehydration. Will obtain urine lites and osm. Will give gentle IV fluids to avoid overcorrection. Plan Gentle IV fluids Urine sodium, osm Serum osmolality Every 6 hour sodium checks Mild intermittent asthma History of mild intermittent asthma on home albuterol inhaler. Patient reports he rarely uses this. Will make albuterol metered-dose inhaler available as needed. Hypertension History of hypertension. Patient unsure what medications he takes. We will continue home hypertensive medications once dosages are confirmed. Hyperlipidemia We will continue home statin once dosage confirmed. GERD History of GERD. We will continue pantoprazole. Coronary artery disease History of coronary artery disease. No history of MT. We will continue home aspirin. DVT prophylaxisLovenox Full code Case discussed with Dr. Wilson who is in agreement with above.
[2020-01-13] MEDS ORDERED: Acetaminophen 500 MG TAB ONE (14:53)
[2020-01-13] MEDS ORDERED: Ondansetron ODT 4 MG TAB PO PRN (14:56)
[2020-01-13] MEDS ORDERED: Ondansetron PF 4 MG/2 ML Vial IVP PRN (14:56)
[2020-01-13] MEDS ORDERED: Guaifenesin DM 100-10/5 ML UDCUP PO PRN (14:56)
[2020-01-13] MEDS ORDERED: Albuterol Sulfate 2.5 mg/0.5 ml Neb ONE ×2 (15:08→15:12)
[2020-01-13] MEDS ORDERED: Albuterol 200 PUFF (6.7GM INHALER) INH PRN (15:18)
[2020-01-13 17:49] VITALS: BMI 31.7
[2020-01-13] MEDS: Cepastat Lozenges 1 LOZ PO PRN (20:01)
[2020-01-13] MEDS: Sodium Chloride 0.9% 1,000 ML IV SCH (22:01)
--- NOTE | 2020-01-14 02:15 | PDOC.EVN ---
Event Note - Event Note Event Note: Nursinig called. patient tachycardic, tachypneic and hypoxic after ambulating to bathroom. Increased NC from 2L to 4L, sp02 95%, HR sustaining 120s- 130s, regular, RR 32. No chest pain or Light headedness. Called RT, recommend Bipap. Placed order for Bipap, transfer to intermediate care.
[2020-01-14] MEDS: Acetaminophen 325 MG TAB PO PRN ×2 (03:39→20:04)
[2020-01-14] MEDS: Sodium Chloride 0.9% 1,000 ML IV SCH ×2 (03:40→20:05)
[2020-01-14] MEDS: Cepastat Lozenges 1 LOZ PO PRN ×2 (03:44→11:59)
[2020-01-14 04:22] LABS: #Lymphocytes 0.4 thou/uL (1.20-3.40); #Monocytes 0.3 thou/uL (0.11-0.59); #Neutrophils 9.1 thou/uL (1.40-6.50); %Basophils 0.2 % (0.0-1.0); %Lymphocytes 4.2 % (21.0-51.0); %Monocytes 3.1 % (0.0-10.0); %Neutrophils 92.5 % (42.0-75.0); Hemoglobin 11.3 g/dL (14.0-18.0); Mean Corpuscular HGB CONC 35.8 g/dL (32.0-36.0); Mean Corpuscular Hemoglobin 34.2 pg (27.0-31.0); Mean Corpuscular Volume 95.3 fL (78.0-98.0); Mean Platelet Volume 8.1 fL (7.4-10.4); Platelet Count 193 thou/uL (130-400); RBC Distribution Width 11.5 % (11.5-14.5); White Blood Cell (WBC) Count 9.8 thou/uL (4.8-10.8)
[2020-01-14] MEDS: Melatonin 3 MG TAB PO PRN ×2 (04:29→20:04)
[2020-01-14 04:35] LABS: Anion Gap 16 mmol/L (10-20); BUN (Urea Nitrogen) 15 mg/dL (8.4-25.7); Calc. Creatinine Clearance 120 mL/min (70-130); Calcium 8.8 mg/dL (7.8-10.44); Carbon Dioxide 18 mmol/L (23-31); Chloride 95 mmol/L (98-107); Glucose 172 mg/dL (80-115); Potassium 3.6 mmol/L (3.5-5.1); Sodium 125 mmol/L (136-145)
[2020-01-14] MEDS: Dexamethasone 4 MG TAB PO SCH (08:02)
[2020-01-14] MEDS: Enoxaparin Sodium 40 MG/0.4 ML SYRINGE SC SCH (08:03)
[2020-01-14] MEDS ORDERED: FLU VACC QS2020-21(65YR UP)/PF 240 MCG/0.7 ML SYRINGE IM ONE (09:00)
[2020-01-14] MEDS ORDERED: Famotidine 20 MG TAB PO PRN (13:28)
[2020-01-14 13:41] LABS: Sodium 126 mmol/L (136-145)
--- NOTE | 2020-01-14 14:26 | PDOC.HOSPP ---
- Subjective Encounter Date: 01/14/20 Subjective: The patient is feeling better than yesterday. - Objective Vital Signs & Weight: Vital Signs (12 hours) Temp Pulse Resp Pulse Ox 01/14/20 12:00 99.5 F 01/14/20 08:00 98.7 F 01/14/20 06:33 100.1 F H 01/14/20 05:04 101.5 F H 01/14/20 04:09 102 F H 01/14/20 03:39 102 F H 01/14/20 03:35 98 01/14/20 03:23 120 H 34 H 98 Weight Weight 234 lb Most Recent Monitor Data Heart Rate from ECG 115 NIBP 168/88 NIBP BP-Mean 114 Respiration from ECG 42 SpO2 95 Result Diagrams: 01/14/20 03:40 01/14/20 13:17 Hospitalist ROS - Medication Medications: Active Medications Generic Name Dose Route Start Last Admin Trade Name Freq PRN Reason Stop Dose Admin Acetaminophen 650 mg 01/13/20 14:56 01/14/20 03:39 Acetaminophen 325 Mg Tab PO 650 mg Q4H PRN Administration Headache/Fever/Mild Pain (1-3) Dexamethasone 6 mg 01/14/20 08:00 01/14/20 08:02 Dexamethasone 4 Mg Tab PO 6 mg QAM-WM MARIANNA Administration Enoxaparin Sodium 40 mg 01/14/20 09:00 01/14/20 08:03 Enoxaparin Sodium 40 Mg/0.4 Ml Syringe SC 40 mg 0900 MARIANNA Administration Sodium Chloride 1,000 mls @ 60 mls/hr 01/13/20 15:00 01/14/20 03:40 Normal Saline 0.9% IV 1,000 mls .[id number] MARIANNA Administration Melatonin 3 mg 01/13/20 15:22 01/14/20 04:29 Melatonin 3 Mg Tab PO 3 mg HS PRN Administration Insomnia Sodium Chloride 10 ml 01/13/20 14:56 01/14/20 08:03 Flush - Normal Saline 10 Ml Syringe IVF 10 ml PRN PRN Administration Saline Flush Throat Lozenges 1 jose d 01/13/20 19:18 01/14/20 11:59 Cepastat Lozenges 1 Jose D PO 1 jose d Q2H PRN Administration Sore Throat - Exam General Appearance: awake alert ENT: normocephalic atraumatic Neck: supple, no JVD Respiratory: normal chest expansion, no tachypnea Extremities: no cyanosis, no clubbing Neurological: cranial nerve grossly intact Hosp A/P (1) COVID-19 virus infection Code(s): U07.1 - COVID-19 Status: Acute (2) Acute respiratory failure with hypoxia Code(s): J96.01 - ACUTE RESPIRATORY FAILURE WITH HYPOXIA Status: Acute (3) Chronic hyponatremia Code(s): E87.1 - HYPO-OSMOLALITY AND HYPONATREMIA Status: Acute - Plan Continue supplemental oxygen as needed. Continue dexamethasone and enoxaparin. No signs of sepsis. We will start remdesivir if indicated per ID.
[2020-01-14] MEDS ORDERED: REMDESIVIR (EUA) 200 MG in Sodium Chloride 0.9% 250 ML 210 ML IV SCH (18:00)
[2020-01-14] MEDS ORDERED: Atenolol 50 MG TAB PO SCH (20:45)
[2020-01-14] MEDS ORDERED: traZODone HCl 50 MG TAB PO SCH (20:45)
[2020-01-14] MEDS: DIFLUPREDNATE R EYE SCH (20:52)
[2020-01-14] MEDS: [UNRECOGNIZED DRUG - OTHER] R EYE SCH (20:52)
[2020-01-14] MEDS ORDERED: DIFLUPREDNATE R EYE SCH (21:00)
[2020-01-14 21:27] LABS: Sodium 127 mmol/L (136-145)
[2020-01-15 04:34] LABS: Anion Gap 17 mmol/L (10-20); BUN (Urea Nitrogen) 20 mg/dL (8.4-25.7); Calc. Creatinine Clearance 113 mL/min (70-130); Calcium 8.6 mg/dL (7.8-10.44); Carbon Dioxide 19 mmol/L (23-31); Chloride 98 mmol/L (98-107); Glucose 159 mg/dL (80-115); Potassium 4.5 mmol/L (3.5-5.1); Sodium 129 mmol/L (136-145)
[2020-01-15 04:36] LABS: Mean Corpuscular HGB CONC 35.9 g/dL (32.0-36.0); Mean Corpuscular Volume 97.6 fL (78.0-98.0); Mean Platelet Volume 7.8 fL (7.4-10.4); Platelet Count 206 thou/uL (130-400); RBC Distribution Width 11.7 % (11.5-14.5); Red Blood Cell (RBC) Count 3.15 mill/uL (4.70-6.10); White Blood Cell (WBC) Count 12.8 thou/uL (4.8-10.8)
[2020-01-15 04:37] LABS: Band 11 % (5-11); Lymphocytes 7 % (21-51); MDiff Complete? YES; Monocytes 6 % (0-10); Neutrophil 76 % (42-75)
[2020-01-15] MEDS: ALPRAZolam 0.25 MG TAB PO PRN ×2 (06:28→20:29)
[2020-01-15 07:08] LABS: ALT (SGPT) 108 U/L (8-55); AST (SGOT) 146 U/L (5-34); Albumin 3.3 g/dL (3.4-4.8); Alkaline Phosphatase 115 U/L (40-110); Bilirubin, Direct 0.4 mg/dL (0.1-0.3); Bilirubin, Total 0.7 mg/dL (0.2-1.2); Protein, Total 6.6 g/dL (5.8-8.1)
[2020-01-15] MEDS: Atenolol 50 MG TAB PO SCH (08:07)
[2020-01-15] MEDS: Amlodipine 10 MG TAB PO SCH (08:07)
[2020-01-15] MEDS: Aspirin 81 mg Enteric Coated Tablet PO SCH (08:07)
[2020-01-15] MEDS: Enoxaparin Sodium 40 MG/0.4 ML SYRINGE SC SCH (08:07)
[2020-01-15] MEDS: [UNRECOGNIZED DRUG - OTHER] R EYE SCH ×2 (08:08→20:30)
[2020-01-15] MEDS: Dexamethasone 4 MG TAB PO SCH (08:08)
[2020-01-15] MEDS: Atorvastatin Calcium 40 MG TAB PO SCH (08:08)
[2020-01-15] MEDS: DIFLUPREDNATE R EYE SCH ×2 (08:08→20:30)
[2020-01-15] MEDS: Bromfenac Sodium [Prolensa] 3 ML Drops R EYE SCH (08:08)
[2020-01-15] MEDS ORDERED: BROMFENAC SODIUM R EYE SCH (09:00)
[2020-01-15] MEDS ORDERED: Non-Formulary Item 1 EACH (Felodipine [Felodipine Er] 10 MG Tab.Er.24h) PO SCH (09:00)
--- NOTE | 2020-01-15 11:10 | CON ---
DATE OF CONSULTATION: 01/15/2020 REASON FOR CONSULTATION: COVID-19 pneumonia. HISTORY OF PRESENT ILLNESS: Mr. Guardado is a 65-year-old male, who is not the best historian. He presented with at least a week of cough, body aches, and fever. He says his had COVID-19 pneumonia 3 weeks ago. It sounds like he tested positive at least a week ago, but did not develop symptoms of any severity until about 2 days ago. It should be noted that he does seem somewhat confused in regard to his dates. When the patient presented to the emergency room, he was hypoxic with O2 saturations in the 80s on room air. He was placed on nasal cannula. He eventually escalated during the night, where he needed BiPAP, but is now back on nasal cannula at 5 L. PAST MEDICAL HISTORY: Asthma, hypertension, hyperlipidemia, coronary artery disease, and gastroesophageal reflux. PAST SURGICAL HISTORY: Essentially unremarkable. FAMILY MEDICAL HISTORY: Unremarkable. SOCIAL HISTORY: Nonsmoker. Does not consume alcohol. Does not use illicit drugs. MEDICATIONS: Prior to admission; 1. Albuterol. 2. Atenolol. 3. Atorvastatin. 4. Famotidine. 5. Felodipine. 6. Aspirin. 7. Omeprazole. ALLERGIES: NONE. REVIEW OF SYSTEMS: Remarkable for body aches, subjective fever, chills, cough, congestion. Otherwise, negative. PHYSICAL EXAMINATION: VITAL SIGNS: Temperature 98.4, pulse 93, blood pressure 160/81, O2 saturation 94% on 5 L nasal cannula. GENERAL: He is awake and in no profound distress. HEENT: Unremarkable. NECK: No adenopathy or JVD. LUNGS: With diffuse crackles. CARDIAC: S1 and S2, regular. ABDOMEN: Soft and nontender. EXTREMITIES: No edema. DIAGNOSTIC STUDIES: His x-ray demonstrates bilateral pulmonary infiltrates, worse on the left. White blood cell count 12.8, hematocrit 30, and platelet count 206. Sodium 129, potassium 4.5, chloride 98, CO2 of 19, BUN 20, creatinine 0.9, glucose 159, AST 146, ALT 108. ASSESSMENT: 1. COVID-19 pneumonia. 2. Acute hypoxic respiratory failure that did require noninvasive mechanical ventilation. 3. Hyperglycemia. PLAN: 1. I would increase the intensity of the patient's anticoagulation. 2. IV steroids - I would use IV at this point instead of p.o. 3. Zinc, vitamin C, vitamin D. 4. LFTs are elevated, also the patient has a mechanical ventilation requirement, therefore remdesivir is probably contraindicated and will not do any good. Thank you for the referral. We will follow with you. Job ID: [id number]
[2020-01-15] MEDS: Sodium Chloride 0.9% 1,000 ML IV SCH (17:25)
--- NOTE | 2020-01-15 17:59 | PDOC.HOSPP ---
- Subjective Encounter Date: 01/15/20 Subjective: The patient is complaining of cough and inability to bring his mucus up. Shortness of breath with exertion is present. - Objective Vital Signs & Weight: Vital Signs (12 hours) Temp Pulse Pulse BP BP Pulse Ox Pulse Ox 01/15/20 16:00 98.6 F 01/15/20 13:55 85 94 147/74 H 157/79 H 92 L 92 L 01/15/20 12:00 99.4 F 01/15/20 08:00 98.4 F Weight Weight 234 lb Most Recent Monitor Data Heart Rate from ECG 77 NIBP 153/72 NIBP BP-Mean 99 Respiration from ECG 38 SpO2 96 I&O: 01/14/20 01/15/20 01/16/20 06:59 06:59 06:59 Intake Total 3202 Output Total 500 Balance 2702 Result Diagrams: 01/15/20 03:42 01/15/20 03:42 Hospitalist ROS - Medication Medications: Active Medications Generic Name Dose Route Start Last Admin Trade Name Freq PRN Reason Stop Dose Admin Acetaminophen 650 mg 01/13/20 14:56 01/14/20 20:04 Acetaminophen 325 Mg Tab PO 650 mg Q4H PRN Administration Headache/Fever/Mild Pain (1-3) Alprazolam 0.25 mg 01/15/20 06:24 01/15/20 06:28 Alprazolam 0.25 Mg Tab PO 0.25 mg Q6H PRN Administration Anxiety Amlodipine Besylate 10 mg 01/15/20 09:00 01/15/20 08:07 Amlodipine 10 Mg Tab PO 10 mg DAILY MARIANNA Administration Aspirin 81 mg 01/15/20 09:00 01/15/20 08:07 Aspirin 81 Mg Enteric Coated Tablet PO 81 mg DAILY MARIANNA Administration Atenolol 50 mg 01/15/20 09:00 01/15/20 08:07 Atenolol 50 Mg Tab PO 50 mg DAILY MARIANNA Administration Atorvastatin Calcium 40 mg 01/15/20 09:00 01/15/20 08:08 Atorvastatin Calcium 40 Mg Tab PO 40 mg DAILY MARIANNA Administration Sodium Chloride 1,000 mls @ 60 mls/hr 01/13/20 15:00 01/15/20 17:25 Normal Saline 0.9% IV 1,000 mls .[id number] MARIANNA Administration Melatonin 3 mg 01/13/20 15:22 01/14/20 20:04 Melatonin 3 Mg Tab PO 3 mg HS PRN Administration Insomnia Bromfenac Sodium [ 0 each 01/15/20 09:00 01/15/20 08:08 Prolensa] 3 Ml Drops R EYE 1 each DAILY MARIANNA Administration Difluprednate [ 0 each 01/14/20 21:00 01/15/20 08:08 Durezol] 5 Ml R EYE 1 each BID MARIANNA Administration Moxifloxacin Opth 1 each 01/14/20 21:00 01/15/20 08:08 Drops R EYE 1 each BID MARIANNA Administration Sodium Chloride 10 ml 01/13/20 14:56 01/14/20 08:03 Flush - Normal Saline 10 Ml Syringe IVF 10 ml PRN PRN Administration Saline Flush Throat Lozenges 1 jose d 01/13/20 19:18 01/14/20 11:59 Cepastat Lozenges 1 Jose D PO 1 jose d Q2H PRN Administration Sore Throat - Exam General Appearance: awake alert ENT: normocephalic atraumatic Neck: supple, no JVD Heart: RRR Respiratory: normal chest expansion, no tachypnea Gastrointestinal: soft Neurological: cranial nerve grossly intact, no focal deficits Hosp A/P (1) COVID-19 virus infection Code(s): U07.1 - COVID-19 Status: Acute (2) Acute respiratory failure with hypoxia Code(s): J96.01 - ACUTE RESPIRATORY FAILURE WITH HYPOXIA Status: Acute (3) Chronic hyponatremia Code(s): E87.1 - HYPO-OSMOLALITY AND HYPONATREMIA Status: Acute - Plan Continue supplemental oxygen as needed. Continue dexamethasone and enoxaparin. No signs of sepsis. Remdesivir has been discontinued due to elevated LFTs. Appreciate pulmonology.
[2020-01-15] MEDS ORDERED: REMDESIVIR (EUA) 100 MG in Sodium Chloride 0.9% 250 ML 230 ML IV SCH (18:00)
[2020-01-15] MEDS: Dexamethasone 4 mg/ml Vial SLOW IVP SCH (20:28)
[2020-01-15] MEDS: Enoxaparin Sodium 80 MG/0.8 ML SYRINGE SC SCH (20:29)
[2020-01-15] MEDS: Melatonin 3 MG TAB PO PRN (20:29)
[2020-01-15] MEDS: guaiFENesin ER 600 MG TAB PO SCH (20:29)
[2020-01-15] MEDS: Cholecalciferol 1,000 UNITS (25 MCG) TAB PO SCH (20:30)
[2020-01-16] MEDS: ALPRAZolam 0.25 MG TAB PO PRN (03:16)
[2020-01-16 04:53] LABS: ALT (SGPT) 155 U/L (8-55); AST (SGOT) 138 U/L (5-34); Albumin 3.3 g/dL (3.4-4.8); Alkaline Phosphatase 122 U/L (40-110); Bilirubin, Direct 0.5 mg/dL (0.1-0.3); Bilirubin, Total 0.8 mg/dL (0.2-1.2); Protein, Total 6.6 g/dL (5.8-8.1)
[2020-01-16 04:55] LABS: Anion Gap 16 mmol/L (10-20); BUN (Urea Nitrogen) 25 mg/dL (8.4-25.7); Calc. Creatinine Clearance 130 mL/min (70-130); Calcium 8.4 mg/dL (7.8-10.44); Carbon Dioxide 17 mmol/L (23-31); Chloride 98 mmol/L (98-107); Glucose 174 mg/dL (80-115); Potassium 4.4 mmol/L (3.5-5.1); Sodium 127 mmol/L (136-145)
[2020-01-16 05:08] LABS: Band 9 % (5-11); Crenated RBC SLIGHT = 1-5 cells (100X) (None Seen); Eosinophils 1 % (0-10); Hemoglobin 11.2 g/dL (14.0-18.0); Lymphocytes 4 % (21-51); MDiff Complete? YES; Macrocytosis SLIGHT = 6-15 cells (100X) (0-5/hpf); Mean Corpuscular Hemoglobin 33.9 pg (27.0-31.0); Mean Corpuscular Volume 99.6 fL (78.0-98.0); Mean Platelet Volume 9.1 fL (7.4-10.4); Metamyelocyte 1 % (0-0); Monocytes 7 % (0-10); Neutrophil 77 % (42-75); Platelet Clumps SLIGHT; Platelet Count 184 thou/uL (130-400); Platelet Morphology Comment Appears Adequate; Reactive Lymphocytes 1 % (0-10); Tear Drops SLIGHT = 2-5 cells (100X) (0-1/hpf); White Blood Cell (WBC) Count 12.1 thou/uL (4.8-10.8)
[2020-01-16] MEDS: Aspirin 81 mg Enteric Coated Tablet PO SCH (08:01)
[2020-01-16] MEDS: Zinc Sulfate 220 MG CAP PO SCH (08:01)
[2020-01-16] MEDS: Ascorbic Acid 500 mg Chewable Tablet PO SCH (08:01)
[2020-01-16] MEDS: Enoxaparin Sodium 80 MG/0.8 ML SYRINGE SC SCH ×2 (08:01→20:20)
[2020-01-16] MEDS: Atenolol 50 MG TAB PO SCH (08:01)
[2020-01-16] MEDS: Amlodipine 10 MG TAB PO SCH (08:02)
[2020-01-16] MEDS: Atorvastatin Calcium 40 MG TAB PO SCH (08:02)
[2020-01-16] MEDS: Dexamethasone 4 mg/ml Vial SLOW IVP SCH ×2 (08:02→20:20)
[2020-01-16] MEDS: guaiFENesin ER 600 MG TAB PO SCH ×2 (08:02→20:20)
[2020-01-16] MEDS: DIFLUPREDNATE R EYE SCH ×2 (08:03→20:20)
[2020-01-16] MEDS: Bromfenac Sodium [Prolensa] 3 ML Drops R EYE SCH (08:03)
[2020-01-16] MEDS: [UNRECOGNIZED DRUG - OTHER] R EYE SCH ×2 (08:04→20:20)
[2020-01-16] MEDS: Sodium Chloride 0.9% 1,000 ML IV SCH (12:33)
--- NOTE | 2020-01-16 12:49 | PRG ---
DATE OF SERVICE: 01/16/2020 SUBJECTIVE: Overall, he is doing better. He has been weaned to about 3 L nasal cannula. OBJECTIVE: VITAL SIGNS: Temperature is 98, pulse 64, respirations 19, O2 saturation in the high 90s, blood pressure 151/98. HEENT: Unremarkable. NECK: No JVD. LUNGS: Clear. CARDIAC: S1, S2. Regular. ABDOMEN: Soft. EXTREMITIES: No edema. LABORATORY DATA: White blood cell count 12, hematocrit 33, and platelet count 184. Sodium 127, potassium 4.4, BUN 25, creatinine 0.8, glucose 174. ASSESSMENT: COVID-19 pneumonia with clinical improvement on steroids and anticoagulation. His decreasing oxygen requirement is very favorable. PLAN: He can be transferred out to the COVID floor. Job ID: [id number]
--- NOTE | 2020-01-16 15:20 | EKG ---
Test Reason : Blood Pressure : / mmHG Vent. Rate : 097 BPM Atrial Rate : 097 BPM P-R Int : 146 ms QRS Dur : 078 ms QT Int : 340 ms P-R-T Axes : 040 012 047 degrees QTc Int : 431 ms Normal sinus rhythm Possible Left atrial enlargement Borderline ECG Confirmed by VI LANCE ([id number]), production editor STEPHANIE DAMON ([id number]) on 01/16/2020 3:19:46 PM Referred By: Confirmed By:VI Shahid
--- NOTE | 2020-01-16 15:53 | PDOC.HOSPP ---
- Subjective Subjective: feeling better, now down to 4L. no fever - Objective Vital Signs & Weight: Vital Signs (12 hours) Temp Pulse Ox 01/16/20 12:00 97.9 F 01/16/20 11:12 99 01/16/20 08:00 98.0 F 01/16/20 04:00 98.2 F Weight Weight 234 lb Most Recent Monitor Data Heart Rate from ECG 60 NIBP 145/74 NIBP BP-Mean 97 Respiration from ECG 26 SpO2 99 I&O: 01/15/20 01/16/20 01/17/20 06:59 06:59 06:59 Intake Total 3202 2570 1160 Output Total 500 975 600 Balance 2702 1595 560 Result Diagrams: 01/16/20 03:37 01/16/20 03:37 Hospitalist ROS - Medication Medications: Active Medications Generic Name Dose Route Start Last Admin Trade Name Freq PRN Reason Stop Dose Admin Acetaminophen 650 mg 01/13/20 14:56 01/14/20 20:04 Acetaminophen 325 Mg Tab PO 650 mg Q4H PRN Administration Headache/Fever/Mild Pain (1-3) Alprazolam 0.25 mg 01/15/20 06:24 01/16/20 03:16 Alprazolam 0.25 Mg Tab PO 0.25 mg Q6H PRN Administration Anxiety Amlodipine Besylate 10 mg 01/15/20 09:00 01/16/20 08:02 Amlodipine 10 Mg Tab PO 10 mg DAILY MARIANNA Administration Ascorbic Acid 1,000 mg 01/16/20 09:00 01/16/20 08:01 Ascorbic Acid 500 Mg Chewable Tablet PO 1,000 mg DAILY MARIANNA Administration Aspirin 81 mg 01/15/20 09:00 01/16/20 08:01 Aspirin 81 Mg Enteric Coated Tablet PO 81 mg DAILY MARIANNA Administration Atenolol 50 mg 01/15/20 09:00 01/16/20 08:01 Atenolol 50 Mg Tab PO 50 mg DAILY MARIANNA Administration Atorvastatin Calcium 40 mg 01/15/20 09:00 01/16/20 08:02 Atorvastatin Calcium 40 Mg Tab PO 40 mg DAILY MARIANNA Administration Cholecalciferol 5,000 units 01/15/20 21:00 01/15/20 20:30 Cholecalciferol 1,000 Units (25 Mcg) Tab PO 5,000 units HS MARIANNA Administration Dexamethasone 8 mg 01/15/20 21:00 01/16/20 08:02 Dexamethasone 4 Mg/Ml Vial SLOW IVP 8 mg BID MARIANNA Administration Enoxaparin Sodium 70 mg 01/15/20 21:00 01/16/20 08:01 Enoxaparin Sodium 80 Mg/0.8 Ml Syringe SC 70 mg 0900,2100 MARIANNA Administration Guaifenesin 600 mg 01/15/20 21:00 01/16/20 08:02 Guaifenesin Er 600 Mg Tab PO 600 mg Q12HR MARIANNA Administration Sodium Chloride 1,000 mls @ 60 mls/hr 01/13/20 15:00 01/16/20 12:33 Normal Saline 0.9% IV 1,000 mls .[id number] MARIANNA Administration Melatonin 3 mg 01/13/20 15:22 01/15/20 20:29 Melatonin 3 Mg Tab PO 3 mg HS PRN Administration Insomnia Bromfenac Sodium [ 0 each 01/15/20 09:00 01/16/20 08:03 Prolensa] 3 Ml Drops R EYE 1 each DAILY MARIANNA Administration Difluprednate [ 0 each 01/14/20 21:00 01/16/20 08:03 Durezol] 5 Ml R EYE 1 each BID MARIANNA Administration Moxifloxacin Opth 1 each 01/14/20 21:00 01/16/20 08:04 Drops R EYE 1 each BID MARIANNA Administration Sodium Chloride 10 ml 01/13/20 14:56 01/16/20 08:01 Flush - Normal Saline 10 Ml Syringe IVF 10 ml PRN PRN Administration Saline Flush Throat Lozenges 1 jose d 01/13/20 19:18 01/14/20 11:59 Cepastat Lozenges 1 Jose D PO 1 jose d Q2H PRN Administration Sore Throat Zinc Sulfate 220 mg 01/16/20 09:00 01/16/20 08:01 Zinc Sulfate 220 Mg Cap PO 220 mg DAILY MARIANNA Administration - Exam General Appearance: NAD Eye: PERRL ENT: normocephalic atraumatic Neck: supple Heart: RRR, no murmur Respiratory: CTAB Gastrointestinal: soft, non-tender Extremities: no cyanosis, no clubbing Skin: normal turgor Neurological: cranial nerve grossly intact Psychiatric: normal affect, normal behavior Hosp A/P - Plan (1) COVID-19 virus infection Code(s): U07.1 - COVID-19 Status: Acute (2) Acute respiratory failure with hypoxia Code(s): J96.01 - ACUTE RESPIRATORY FAILURE WITH HYPOXIA Status: Acute (3) Chronic hyponatremia Code(s): E87.1 - HYPO-OSMOLALITY AND HYPONATREMIA Status: Acute - Plan Continue supplemental oxygen as needed. Continue dexamethasone and enoxaparin for DVT ppx No signs of sepsis. Remdesivir has been discontinued due to elevated LFTs, trending down Appreciate pulmonology. AM labs. transfer to floor
[2020-01-16] MEDS: Cholecalciferol 1,000 UNITS (25 MCG) TAB PO SCH (20:19)
[2020-01-17 05:29] LABS: ALT (SGPT) 126 U/L (8-55); AST (SGOT) 62 U/L (5-34); Alkaline Phosphatase 109 U/L (40-110); Bilirubin, Direct 0.4 mg/dL (0.1-0.3); Bilirubin, Total 0.7 mg/dL (0.2-1.2); Protein, Total 6.2 g/dL (5.8-8.1)
[2020-01-17 05:31] LABS: Anion Gap 13 mmol/L (10-20); BUN (Urea Nitrogen) 22 mg/dL (8.4-25.7); Calc. Creatinine Clearance 135 mL/min (70-130); Calcium 8.3 mg/dL (7.8-10.44); Carbon Dioxide 21 mmol/L (23-31); Chloride 102 mmol/L (98-107); Glucose 174 mg/dL (80-115); Potassium 4.3 mmol/L (3.5-5.1); Sodium 132 mmol/L (136-145)
[2020-01-17 05:47] LABS: Hemoglobin 10.8 g/dL (14.0-18.0); Mean Corpuscular HGB CONC 35.1 g/dL (32.0-36.0); Mean Corpuscular Hemoglobin 34.4 pg (27.0-31.0); Mean Platelet Volume 7.8 fL (7.4-10.4); Platelet Count 287 thou/uL (130-400); RBC Distribution Width 11.7 % (11.5-14.5); Red Blood Cell (RBC) Count 3.15 mill/uL (4.70-6.10); White Blood Cell (WBC) Count 10.4 thou/uL (4.8-10.8)
[2020-01-17 05:51] LABS: Band 4 % (5-11); Lymphocytes 7 % (21-51); MDiff Complete? YES; Monocytes 6 % (0-10); Neutrophil 83 % (42-75)
[2020-01-17] MEDS: Sodium Chloride 0.9% 1,000 ML IV SCH ×2 (06:14→23:43)
[2020-01-17] MEDS: Atorvastatin Calcium 40 MG TAB PO SCH (09:30)
[2020-01-17] MEDS: Enoxaparin Sodium 80 MG/0.8 ML SYRINGE SC SCH ×2 (09:30→19:40)
[2020-01-17] MEDS: Ascorbic Acid 500 mg Chewable Tablet PO SCH (09:31)
[2020-01-17] MEDS: Aspirin 81 mg Enteric Coated Tablet PO SCH (09:31)
[2020-01-17] MEDS: Dexamethasone 4 mg/ml Vial SLOW IVP SCH ×2 (09:31→19:38)
[2020-01-17] MEDS: guaiFENesin ER 600 MG TAB PO SCH ×2 (09:34→19:40)
[2020-01-17] MEDS: Amlodipine 10 MG TAB PO SCH (09:34)
[2020-01-17] MEDS: Zinc Sulfate 220 MG CAP PO SCH (09:34)
[2020-01-17] MEDS: Atenolol 50 MG TAB PO SCH (09:34)
[2020-01-17] MEDS: Bromfenac Sodium [Prolensa] 3 ML Drops R EYE SCH (10:23)
[2020-01-17] MEDS: DIFLUPREDNATE R EYE SCH ×2 (10:24→19:41)
[2020-01-17] MEDS: [UNRECOGNIZED DRUG - OTHER] R EYE SCH ×2 (10:24→19:41)
--- NOTE | 2020-01-17 16:20 | PDOC.HOSPP ---
- Subjective Subjective: Patient continues to improve, he has been weaned down to 1 L, and satting well. His ALT has been trending down. CRP still elevated. No fever. No other acute events overnight. - Objective Vital Signs & Weight: Vital Signs (12 hours) Temp Pulse Resp BP BP Pulse Ox 01/17/20 16:07 99 01/17/20 15:50 97 F L 54 L 17 149/70 H 99 01/17/20 12:40 97.7 F 61 20 143/73 H 100 01/17/20 09:40 97 F L 65 17 128/71 100 01/17/20 09:35 100 01/17/20 04:48 98 01/17/20 04:45 97.5 F L 68 24 H 172/84 H 99 Weight Weight 234 lb Most Recent Monitor Data Heart Rate from ECG 60 NIBP 145/74 NIBP BP-Mean 97 Respiration from ECG 26 SpO2 99 I&O: 01/16/20 01/17/20 01/18/20 06:59 06:59 06:59 Intake Total 2570 3060 Output Total 975 5 Balance 1595 1035 Result Diagrams: 01/17/20 04:31 01/17/20 04:31 Radiology Reviewed by me: Yes EKG Reviewed by me: Yes Hospitalist ROS - Medication Medications: Active Medications Generic Name Dose Route Start Last Admin Trade Name Freq PRN Reason Stop Dose Admin Acetaminophen 650 mg 01/13/20 14:56 01/14/20 20:04 Acetaminophen 325 Mg Tab PO 650 mg Q4H PRN Administration Headache/Fever/Mild Pain (1-3) Alprazolam 0.25 mg 01/15/20 06:24 01/16/20 03:16 Alprazolam 0.25 Mg Tab PO 0.25 mg Q6H PRN Administration Anxiety Amlodipine Besylate 10 mg 01/15/20 09:00 01/17/20 09:34 Amlodipine 10 Mg Tab PO 10 mg DAILY MARIANNA Administration Ascorbic Acid 1,000 mg 01/16/20 09:00 01/17/20 09:31 Ascorbic Acid 500 Mg Chewable Tablet PO 1,000 mg DAILY MARIANNA Administration Aspirin 81 mg 01/15/20 09:00 01/17/20 09:31 Aspirin 81 Mg Enteric Coated Tablet PO 81 mg DAILY MARIANNA Administration Atenolol 50 mg 01/15/20 09:00 01/17/20 09:34 Atenolol 50 Mg Tab PO 50 mg DAILY MARIANNA Administration Atorvastatin Calcium 40 mg 01/15/20 09:00 01/17/20 09:30 Atorvastatin Calcium 40 Mg Tab PO 40 mg DAILY MARIANNA Administration Cholecalciferol 5,000 units 01/15/20 21:00 01/16/20 20:19 Cholecalciferol 1,000 Units (25 Mcg) Tab PO 5,000 units HS MARIANNA Administration Dexamethasone 8 mg 01/15/20 21:00 01/17/20 09:31 Dexamethasone 4 Mg/Ml Vial SLOW IVP 8 mg BID MARIANNA Administration Enoxaparin Sodium 70 mg 01/15/20 21:00 01/17/20 09:30 Enoxaparin Sodium 80 Mg/0.8 Ml Syringe SC 70 mg [id number],2099 MARIANNA Administration Guaifenesin 600 mg 01/15/20 21:00 01/17/20 09:34 Guaifenesin Er 600 Mg Tab PO 600 mg Q12HR MARIANNA Administration Sodium Chloride 1,000 mls @ 60 mls/hr 01/13/20 15:00 01/17/20 06:14 Normal Saline 0.9% IV 1,000 mls .[id number] MARIANNA Administration Melatonin 3 mg 01/13/20 15:22 01/15/20 20:29 Melatonin 3 Mg Tab PO 3 mg HS PRN Administration Insomnia Bromfenac Sodium [ 0 each 01/15/20 09:00 01/17/20 10:23 Prolensa] 3 Ml Drops R EYE 1 each DAILY MARIANNA Administration Difluprednate [ 0 each 01/14/20 21:00 01/17/20 10:24 Durezol] 5 Ml R EYE 1 each BID MARIANNA Administration Moxifloxacin Opth 1 each 01/14/20 21:00 01/17/20 10:24 Drops R EYE 1 each BID MARIANNA Administration Sodium Chloride 10 ml 01/13/20 14:56 01/17/20 09:30 Flush - Normal Saline 10 Ml Syringe IVF 10 ml PRN PRN Administration Saline Flush Throat Lozenges 1 jose d 01/13/20 19:18 01/14/20 11:59 Cepastat Lozenges 1 Jose D PO 1 jose d Q2H PRN Administration Sore Throat Zinc Sulfate 220 mg 01/16/20 09:00 01/17/20 09:34 Zinc Sulfate 220 Mg Cap PO 220 mg DAILY MARIANNA Administration - Exam General Appearance: NAD Eye: PERRL ENT: normocephalic atraumatic Neck: supple Heart: RRR, no murmur Respiratory: CTAB Gastrointestinal: soft Extremities: no cyanosis Skin: normal turgor Neurological: cranial nerve grossly intact Musculoskeletal: normal tone Psychiatric: normal affect, normal behavior, A&O x 3 Hosp A/P - Plan (1) COVID-19 virus infection Code(s): U07.1 - COVID-19 Status: Acute (2) Acute respiratory failure with hypoxia Code(s): J96.01 - ACUTE RESPIRATORY FAILURE WITH HYPOXIA Status: Acute (3) Chronic hyponatremia Code(s): E87.1 - HYPO-OSMOLALITY AND HYPONATREMIA Status: Acute - Plan Continue supplemental oxygen as needed. Continue dexamethasone and enoxaparin for DVT ppx Remdesivir has been discontinued due to elevated LFTs, trending down Continue with supportive care, anticipate that next day or 2. Follow a.m. lab
[2020-01-17] MEDS: ALPRAZolam 0.25 MG TAB PO PRN (19:39)
[2020-01-17] MEDS: Cholecalciferol 1,000 UNITS (25 MCG) TAB PO SCH (19:40)
[2020-01-18 05:03] LABS: #Basophils 0.1 thou/uL (0.0-0.2); #Lymphocytes 0.9 thou/uL (1.20-3.40); %Basophils 0.4 % (0.0-1.0); %Eosinophils 0.2 % (0.0-10.0); %Lymphocytes 7.5 % (21.0-51.0); %Monocytes 8.5 % (0.0-10.0); %Neutrophils 83.4 % (42.0-75.0); Hemoglobin 11.3 g/dL (14.0-18.0); Mean Corpuscular HGB CONC 34.3 g/dL (32.0-36.0); Mean Corpuscular Hemoglobin 33.6 pg (27.0-31.0); Mean Platelet Volume 7.9 fL (7.4-10.4); Platelet Count 371 thou/uL (130-400); RBC Distribution Width 12.1 % (11.5-14.5); Red Blood Cell (RBC) Count 3.37 mill/uL (4.70-6.10)
[2020-01-18 05:37] LABS: ALT (SGPT) 101 U/L (8-55); AST (SGOT) 35 U/L (5-34); Albumin 3.2 g/dL (3.4-4.8); Alkaline Phosphatase 101 U/L (40-110); Bilirubin, Direct 0.4 mg/dL (0.1-0.3); Bilirubin, Total 0.6 mg/dL (0.2-1.2); Protein, Total 6.3 g/dL (5.8-8.1)
[2020-01-18 05:40] LABS: Anion Gap 13 mmol/L (10-20); BUN (Urea Nitrogen) 23 mg/dL (8.4-25.7); Calc. Creatinine Clearance 128 mL/min (70-130); Calcium 8.2 mg/dL (7.8-10.44); Carbon Dioxide 19 mmol/L (23-31); Chloride 104 mmol/L (98-107); Glucose 172 mg/dL (80-115); Potassium 4.4 mmol/L (3.5-5.1); Sodium 132 mmol/L (136-145)
[2020-01-18] MEDS: Atorvastatin Calcium 40 MG TAB PO SCH (08:52)
[2020-01-18] MEDS: Amlodipine 10 MG TAB PO SCH (08:52)
[2020-01-18] MEDS: Dexamethasone 4 mg/ml Vial SLOW IVP SCH (08:52)
[2020-01-18] MEDS: Aspirin 81 mg Enteric Coated Tablet PO SCH (08:52)
[2020-01-18] MEDS: Ascorbic Acid 500 mg Chewable Tablet PO SCH (08:52)
[2020-01-18] MEDS: Atenolol 50 MG TAB PO SCH (08:52)
[2020-01-18] MEDS: Zinc Sulfate 220 MG CAP PO SCH (08:53)
[2020-01-18] MEDS: Bromfenac Sodium [Prolensa] 3 ML Drops R EYE SCH (08:53)
[2020-01-18] MEDS: Enoxaparin Sodium 80 MG/0.8 ML SYRINGE SC SCH (08:53)
[2020-01-18] MEDS: guaiFENesin ER 600 MG TAB PO SCH (08:53)
[2020-01-18] MEDS: DIFLUPREDNATE R EYE SCH (08:54)
[2020-01-18] MEDS: [UNRECOGNIZED DRUG - OTHER] R EYE SCH (08:54)
--- NOTE | 2020-01-18 10:39 | PDOC.DS.DS ---
Provider - Provider Date of Admission: 01/13/20 14:22 Date of Discharge: 01/18/20 Admitting Provider: Jacob Wilson MD Primary Care Physician: ROBYN Whittington Course - Hospital Course Hospital Course: DISCHARGE DIAGNOSES: 1. Acute hypoxic respiratory failure secondary to COVID-19 pneumonia 2. COVID-19 pneumonia 3. Hypertension, essential 4. Hyponatremia resolved PERTINENT IMAGING STUDIES: Chest x-ray showed multifocal pneumonia HISTORY OF PRESENT ILLNESS AND BRIEF HOSPITAL COURSE: The patient is a pleasant 65 years old gentleman who has significant past medical histories of mild intermittent asthma, hypertension, dyslipidemia, GERD, CAD, who presented to ED with worsening short of breath. His symptoms started around 01/08/2020, with URI symptoms, he was subsequently tested positive for Covid on January 14. He was found hypoxic, with O2 sat in the 80s on room air on arrival. He was ultimately admitted. Patient was started on Decadron, as well as convalescent plasma. He also was started on remdesivir, however his LFT was trending up, for that reason it was discontinued. Fortunately, he continues to improve, his oxygen has been weaned off to room air for the last 24 hours. He is feeling more fine. His symptom now resolved. At this time, patient is stable to discharge home. He will continue self quarantine until at least January 21. He also discharged with slow taper of prednisone, and Eliquis for DVT prophylaxis. PROCEDURE PERFORMED: NONE DISCHARGE CONDITION: STABLE DISPOSITION: HOME PHYSICAL EXAM: General Appearance: Alert, oriented, resting comfortably, no apparent distress, well developed/nourished. HEENT: Normocephalic/atraumatic, moist mucous membrane, normal ENT inspection, normal tones. PERRLA, no scleral icterus, normal conjunctiva Neck: Supple, normal inspection, no JVD Respiratory: Lungs are clear bilaterally, normal breath sounds, no accessory muscle use Cardiovascular: Regular rate, regular rhythm, no murmur, no rubs Abdomen: Soft, nontender, nondistended, normal bowel sounds, no organomegaly, no guarding no rebound Back: Normal inspection, no CVA tenderness Extremities: No clubbing, no cyanosis, no edema Psych/Mental Status: Normal affect, speech, non-pressured, AAO x 3 Neurologic: CN II-XII are intact. Skin: Warm/Dry, Normal Color, no rashes DISCHARGE TIME SPENT: >30 MINUTES Resuscitation Status: 01/13/20 14:56 Resuscitation Status Routine Co-Sign Provider: Resuscitation Status: FULL: Full Resuscitation - Labs Lab Results: 01/18/20 04:47 01/18/20 04:46 Abnormal Lab Results - Last 48 hrs 01/17/20 04:31: Sodium 132 L, Carbon Dioxide 21 L 01/17/20 04:31: RBC 3.15 L, Hgb 10.8 L, Hct 30.9 L, MCH 34.4 H, Neutrophils % (Manual) 83 H, Band Neuts % (Manual) 4 L, Lymphocytes % (Manual) 7 L 01/17/20 04:31: Direct Bilirubin 0.4 H, AST 62 H, ALT 126 H, Albumin 3.0 L 01/17/20 04:31: C-Reactive Protein 8.44 H 01/18/20 04:46: Sodium 132 L, Carbon Dioxide 19 L 01/18/20 04:46: Direct Bilirubin 0.4 H, AST 35 H, ALT 101 H, Albumin 3.2 L 01/18/20 04:46: C-Reactive Protein 4.95 H 01/18/20 04:47: WBC 12.0 H, RBC 3.37 L, Hgb 11.3 L, Hct 33.0 L, MCH 33.6 H, Neutrophils % 83.4 H, Lymphocytes % 7.5 L, Neutrophils # 10.0 H, Lymphocytes # 0.9 L, Monocytes # 1.0 H - Physical Exam Vitals: Vital Signs (12 hours) Temp Pulse Resp BP BP Pulse Ox 01/18/20 09:21 97.2 F L 57 L 18 165/80 H 97 01/18/20 04:30 97.5 F L 63 20 171/81 H 96 Weight Weight 234 lb Most Recent Monitor Data Heart Rate from ECG 60 NIBP 145/74 NIBP BP-Mean 97 Respiration from ECG 26 SpO2 99 Physical Exam: The patient was seen and examined on the day of discharge. 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 [place] Plan - Discharge Medications Prescriptions: Apixaban [Eliquis] 2.5 mg PO BID #60 tab guaiFENesin ER [Mucinex] 600 mg PO BID #14 tab predniSONE [Prednisone] 10 mg PO DAILY #30 tablet Home Medications: Medication Instructions Recorded Confirmed Type Aspirin [Aspir-Low] 81 mg PO DAILY 12/04/18 01/14/20 History Atorvastatin Calcium 40 mg PO DAILY 12/04/18 01/14/20 History Albuterol Sulfate [Albuterol 1 puff INH PRN PRN 01/14/20 01/14/20 History Sulfate Hfa] Atenolol 50 mg PO DAILY 01/14/20 01/14/20 History Bromfenac Sodium [Prolensa] 1 drop R EYE DAILY 01/14/20 01/14/20 History Difluprednate [Durezol] 1 drop R EYE BID 01/14/20 01/14/20 History Famotidine 20 mg PO DAILY PRN 01/14/20 01/14/20 History Felodipine [Felodipine ER] 10 mg PO DAILY 01/14/20 01/14/20 History Moxifloxacin HCl [Moxifloxacin] 1 drop R EYE BID 01/14/20 01/14/20 History Omeprazole 40 mg PO DAILY 01/14/20 01/14/20 History Apixaban [Eliquis] 2.5 mg PO BID #60 tab 01/18/20 Rx guaiFENesin ER [Mucinex] 600 mg PO BID #14 tab 01/18/20 Rx predniSONE [Prednisone] 10 mg PO DAILY #30 tablet 01/18/20 Rx Allergies: No Known Allergies Allergy (Verified 05/04/19 12:59) - Discharge Instructions Discharge Instructions:: Please complete the course of taper prednisone as prescribed. Take Low-dose Eliquis twice daily for DVT prophylaxis Follow-up with your PCP in 1 to 2 weeks Activity:: Activity as Tolerated Nourishment:: Heart Healthy Diet - Follow up Plan Referrals: Carrie Al FNP [Primary Care Provider] - 14 Days Disposition: HOME Quality - Care Measures CORE MEASURES:: N/A
[2020-01-18 13:05] VITALS: BP 162/79; TEMP 96
== END 2020-01-18 16:48 | disposition home or self-care (01) | DRG 177 ==
LOC: ERS 13:06 → T4-B 14:22 → IMCU/EMU 01-14 03:09 → 2SW 01-16 15:42
PROVIDERS: ADMIT Internal Medicine; ATTEND Family Medicine
PROC: 8E0ZXY6 Isolation (ICD-10-PCS; principal; 2020-01-13)
PROC: XW033E5 Introduction of Remdesivir Anti-infective into Peripheral Vein, Percutaneous Approach, New Technology Group 5 (ICD-10-PCS; 2020-01-14)
PROC: 5A09357 Assistance with Respiratory Ventilation, Less than 24 Consecutive Hours, Continuous Positive Airway Pressure (ICD-10-PCS; 2020-01-14)
DX: U07.1 COVID-19 (principal); J12.89 Other viral pneumonia; J96.01 Acute respiratory failure with hypoxia; E87.1 Hypo-osmolality and hyponatremia; Z23 Encounter for immunization; I10 Essential (primary) hypertension; J45.20 Mild intermittent asthma, uncomplicated; E78.5 Hyperlipidemia, unspecified; K21.9 Gastro-esophageal reflux disease without esophagitis; I25.10 Atherosclerotic heart disease of native coronary artery without angina pectoris; R73.9 Hyperglycemia, unspecified; Z79.82 Long term (current) use of aspirin; Z79.51 Long term (current) use of inhaled steroids; Z79.52 Long term (current) use of systemic steroids; Z79.899 Other long term (current) drug therapy
CPT/HCPCS: 36415; 71045; 80048; 80053; 80076; 83930; 83935; 84300; 85025; 86140; 87635; 93005; 94660; 96374; J1100; J1650; J7050; J7611; J7620; J8540; U0003

== ENCOUNTER 2020-03-04 08:41 | Outpatient (CLI) | payer MEDICARE ==
--- NOTE | 2020-03-04 09:21 | RAD ---
Lateral neutral, flexion, and extension views of the cervical spine: 03/04/2020 COMPARISON: 01/26/2019 HISTORY: Upper extremity paresthesias, left upper extremity radiculopathy, prior cervical spine surge ry. FINDINGS: There is multilevel anterior discectomy and fusion hardware including the C3-4, C4-5, C5-6, and C6-7 levels. Bilateral laminectomy changes are noted from C3 through C6 and there is posterior fusion hardware with bilateral pedicle screws and vertically oriented interlocking rods from the C3-C 7 levels. No prevertebral soft tissue swelling. There is no significant anterolisthesis or retrolisthesis noted on the extension, flexion, or neutral views. IMPRESSION: Extensive postoperative findings as described above.
--- NOTE | 2020-03-04 09:53 | CT ---
Exam: CT cervical spine without contrast HISTORY: Follow-up surgery. Neck pain that extends down the left arm. Numbness and tingling. Paresthe elvis. COMPARISON: 12/04/2018 FINDINGS: No craniocervical dissociation. Appropriate alignment of the lateral masses of C1 and C2. Intact odon toid process Appropriate alignment of the facets. There is straightening of cervical lordosis. There is an anterior fusion plate with transvertebral kenia dy screw spanning C3-C7. There are posterior facet screws spanning C3-C7. No perihardware lucency. Disc prosthesis at C3-C4, C4-C5, C5-C6 and C6-C7. Posterior decompressive laminectomies are identifie d from C3-C6. Soft tissue neck structures: No mass, lymphadenopathy or hematoma. No prevertebral soft tissue swelli ng. Upper mediastinum and lung apices: Unremarkable Central spinal canal: Limited evaluation by the absence of intrathecal contrast. C2-C3: Broad-based disc osteophyte complex. No significant central canal stenosis. Right neural collin en is patent. Moderate left foraminal narrowing due to uncovertebral and facet hypertrophy. C3-C4: Disc prosthesis. Left paracentral osteophyte. Decompressive laminectomy. No significant centra l canal stenosis. Moderate to severe bilateral neural foraminal narrowing due to uncovertebral and facet hypertrophy. C4-C5: Disc prosthesis. Decompressive laminectomy. No significant central canal stenosis. Mild bilate ral foraminal narrowing due to uncovertebral and left facet hypertrophy. C5-C6: Disc prosthesis. Broad-based osteophyte. No significant central canal stenosis. Decompressive laminectomy. Mild to moderate bilateral neural foraminal narrowing due to uncovertebral hypertrophy. C6-C7: Disc prosthesis. Broad-based osteophyte ridge. No significant central canal stenosis. Right ne ural foramen is patent. Mild left foraminal narrowing due to uncovertebral hypertrophy. C7-T1: No significant central canal stenosis. There is moderate bilateral neural foraminal narrowing. 3.1 mm of anterolisthesis of C7 upon T1. Incidentals: Stable changes involving the left base of the dens. Vertebral bodies: Cervical spine vertebral body height is maintained. No fracture. IMPRESSION: Extensive postsurgical changes of the cervical spine as detailed above. Transcribed Date/Time: 03/04/2020 10:10 AM
--- NOTE | 2020-03-04 10:13 | MRI ---
Exam: MRI cervical spine without contrast HISTORY: Cervical fusion. COMPARISON: 11/25/2017 FINDINGS: Interval placement of cervical fusion from C3 through C7. Associated metallic susceptibility artifac t. There are anterior and posterior fusion changes. There is a decompressive laminectomy at C3, C4, C5 and C6. Disc prosthesis at C3-C4, C4-C5, C5-C6 and C6-C7. Grade 1 anterolisthesis of C7 upon T1. Visualized brain parenchyma, cervicomedullary junction, cervical cord and the upper thoracic cord hav e a normal size and signal intensity. At the laminectomy defect site, sagittal T2-weighted images demonstrate a multiloculated T2 hyperinte nse focus. Findings may represent postsurgical fluid. The possibility of an infected fluid collection measuring 3.6 cm in craniocaudal dimension cannot be excluded. C2-C3: No high-grade central canal stenosis. Right neural foramen is patent. Moderate left neural for aminal narrowing. C3-C4: Disc prosthesis. Decompressive laminectomy. No high-grade central canal stenosis. Moderate chirag ateral neural foraminal narrowing. C4-C5: Disc prosthesis. Posterior laminectomy defect. No significant central canal stenosis. Patent b ilateral neural foramina. C5-C6: Central/right paracentral osteophyte ridge. Disc prosthesis. Posterior laminectomy defect. Mil d right neural foraminal narrowing. Patent left neural foramen. C6-C7: Disc prosthesis. Broad-based osteophyte ridge. No significant central canal stenosis. Mild to moderate bilateral neural foraminal narrowing. C7-T1: Broad-based disc bulge, grade 1 anterolisthesis result in moderate central canal stenosis and moderate bilateral neural foraminal narrowing. IMPRESSION: Postoperative changes of the cervical spine as described above. Transcribed Date/Time: 03/04/2020 10:28 AM
--- NOTE | 2020-03-04 10:19 | RAD ---
CERVICAL SPINE 3 VIEWS: INDICATION: Paresthesias of the upper extremity. COMPARISON: Prior exam dated 03/04/2020. FINDINGS: The ACDF spanning C3 through C7 is again demonstrated. There are articular pillage screws at C3 thro ugh C7. Spinal alignment is preserved. The lateral masses are symmetric. There are vascular calcif ications involving the carotid bulbs. Lung apices are clear. IMPRESSION: Postoperative cervical spine with mild cervical spondylosis. POS: [facility]
== END 2020-03-04 08:42 | disposition home or self-care (01) ==
LOC: TBSIIMAG 08:41
PROVIDERS: ATTEND Surgery
DX: R20.2 Paresthesia of skin (principal); M47.812 Spondylosis without myelopathy or radiculopathy, cervical region; Z98.1 Arthrodesis status; Z98.890 Other specified postprocedural states
CPT/HCPCS: 72040; 72125; 72141

== ENCOUNTER 2020-03-21 10:26 | Outpatient (CLI) | payer MEDICARE ==
--- NOTE | 2020-03-21 11:16 | RAD ---
Lumbar spine: 4 views INDICATIONS:Lumbar radiculopathy COMPARISON:MRI lumbar spine 10/24/2018 FINDINGS: Mild compression of the L1 and L2 vertebra are stable. Degenerative osteophytes. Disc space narrowing at all levels, stable from prior exam. Normal alignment is maintained. Prominent spurring and facet hypertrophy is stable. No soft tissue abnormality. IMPRESSION: Moderate to severe degenerative changes. Stable from prior MRI.
--- NOTE | 2020-03-21 12:43 | MRI ---
MRI lumbar spine noncontrast: HISTORY: Lumbar radiculopathy. Pain times several years. COMPARISON: 11/25/2017. FINDINGS: Mildly heterogeneous marrow signal intensity of the lumbar vertebra compatible with senescent change as well as multilevel type I and type II Modic change. Appropriate signal intensity of the visualized paraspinal muscles. Mild atrophy of the right psoas mu scle. Exophytic T2 hyperintense focus in the right renal cortex. Conus medullaris terminates at the inferior aspect of L1. T12-L1:Disc desiccation with severe loss of disc space height. Broad-based disc bulge and posterior e lement hypertrophy result in moderate central canal stenosis. Moderate bilateral neural foraminal narrowing. L1-L2:Moderate loss of disc space height. Broad-based disc bulge results in moderate central canal st enosis. Moderate to severe bilateral neural foraminal narrowing. L2-L3:Severe loss of disc space height. Broad-based disc bulge, ligamentum flavum thickening and face t hypertrophy result in moderate to severe central canal stenosis. Severe bilateral neural foraminal narrowing. L3-L4:Moderate loss of disc space height. Broad-based disc bulge, ligamentum flavum thickening and fa cet hypertrophy result in severe central canal stenosis. Moderate to severe bilateral neural foraminal narrowing. L4-L5:Severe loss of disc space height. Broad-based disc bulge and facet hypertrophy result in modera te central canal stenosis. Partial obscuration of bilateral traversing L5 nerve roots. Severe bilateral neural foraminal narrowing. L5-S1:Moderate to severe loss of disc space height. Central disc herniation with mild central canal s tenosis. Moderate to severe bilateral neural foraminal narrowing. IMPRESSION: Multilevel degenerative changes of the lumbar spine as described above. Transcribed Date/Time: 03/21/2020 1:45 PM
== END 2020-03-21 10:27 | disposition home or self-care (01) ==
LOC: TBSIIMAG 10:26
PROVIDERS: ATTEND Surgery
DX: M47.26 Other spondylosis with radiculopathy, lumbar region (principal)
CPT/HCPCS: 72120; 72148

== ENCOUNTER 2020-11-24 11:37 | Outpatient (CLI) | payer MEDICARE | END 2020-11-24 11:38 | disposition home or self-care (01) | LOC: BICULT 11:37 | PROVIDERS: ATTEND Family Medicine | DX: I10 Essential (primary) hypertension (principal); R09.89 Other specified symptoms and signs involving the circulatory and respiratory systems; I35.0 Nonrheumatic aortic (valve) stenosis; I65.21 Occlusion and stenosis of right carotid artery | CPT/HCPCS: 93880 ==

== ENCOUNTER 2020-11-28 11:11 | Outpatient (CLI) | payer MEDICARE ==
[2020-11-28 13:18] LABS: Anion Gap 14 mmol/L (10-20); BUN (Urea Nitrogen) 20 mg/dL (8.4-25.7); Calc. Creatinine Clearance 0 mL/min (70-130); Calcium 9.6 mg/dL (7.8-10.44); Carbon Dioxide 21 mmol/L (23-31); Chloride 104 mmol/L (98-107); Glucose 95 mg/dL (80-115); Hemoglobin 12.7 g/dL (13.5-17.5); Mean Corpuscular HGB CONC 34.9 g/dL (32.0-36.0); Mean Corpuscular Hemoglobin 33.8 pg (27.0-33.0); Mean Corpuscular Volume 96.8 fl (81.2-95.1); Platelet Count 173 10x3/uL (150-450); Potassium 4.4 mmol/L (3.5-5.1); RBC Distribution Width 11.9 % (11.5-14.5); Red Blood Cell (RBC) Count 3.76 10x6/uL (4.32-5.72); Sodium 135 mmol/L (136-145); White Blood Cell (WBC) Count 6.9 10x3/uL (3.5-10.5)
[2020-11-29 00:58] LABS: SARS-CoV-2 PCR by NAA Not Detected (NotDetected)
== END 2020-11-28 11:12 | disposition home or self-care (01) ==
LOC: LABBT 11:11
PROVIDERS: ATTEND Specialist
DX: Z01.818 Encounter for other preprocedural examination (principal); G89.4 Chronic pain syndrome; M51.16 Intervertebral disc disorders with radiculopathy, lumbar region; Z20.822 Contact with and (suspected) exposure to COVID-19
CPT/HCPCS: 80048; 82607; 82746; 83090; 83921; 85007; 85027 ×2; 93005; U0003; U0005; 36415; 85060; 93010

== ENCOUNTER 2020-12-01 10:01 | Day surgery (SDC) | payer MEDICARE ==
[2020-11-30 12:41] VITALS: BMI 31.8
[2020-12-01] MEDS ORDERED: Sodium Chloride 0.9% 100 ML ONE (10:53)
[2020-12-01] MEDS ORDERED: CEFAZOLIN 1 GM VIAL ONE (10:53)
[2020-12-01] MEDS ORDERED: EPINEPHrine 1 MG/ML AMP ONE (11:20)
[2020-12-01] MEDS ORDERED: Bupivacaine PF 0.5% 30 ML VIAL ONE (11:20)
[2020-12-01] MEDS ORDERED: Propofol 500 MG/50 ML VIAL ONE (11:29)
[2020-12-01] MEDS ORDERED: Lidocaine 1% PF 5 ML VIAL ONE (11:55)
[2020-12-01] MEDS ORDERED: PROPOFOL 200 MG/20 ML VIAL ONE (11:55)
[2020-12-01] MEDS ORDERED: Fentanyl 100 MCG/2 ML VIAL ONE (12:58)
[2020-12-01] MEDS ORDERED: PROPOFOL 20 ML ONE (12:59)
== END 2020-12-01 14:55 | disposition home or self-care (01) ==
LOC: SDC 10:01
PROVIDERS: ATTEND Specialist
PROC: 0JH70EZ Insertion of Multiple Array Rechargeable Stimulator Generator into Back Subcutaneous Tissue and Fascia, Open Approach (ICD-10-PCS; principal; 2020-12-01)
PROC: 00HU3MZ Insertion of Neurostimulator Lead into Spinal Canal, Percutaneous Approach (ICD-10-PCS; 2020-12-01)
DX: G89.4 Chronic pain syndrome (principal); M54.16 Radiculopathy, lumbar region; Z79.82 Long term (current) use of aspirin; Z79.899 Other long term (current) drug therapy; Z98.1 Arthrodesis status
CPT/HCPCS: 63650 ×2; 63685; 72020; 76000; C1778; C1787; C1820; L8689; J0171; J0690; J2704; J3010; J3490; S0020

== ENCOUNTER 2021-11-28 12:12 | Outpatient (CLI) | payer MEDICARE | END 2021-11-28 12:13 | disposition home or self-care (01) | LOC: MRI 12:12 | PROVIDERS: ATTEND Surgery | DX: M47.26 Other spondylosis with radiculopathy, lumbar region (principal); M48.061 Spinal stenosis, lumbar region without neurogenic claudication; M47.25 Other spondylosis with radiculopathy, thoracolumbar region; M47.27 Other spondylosis with radiculopathy, lumbosacral region; M48.05 Spinal stenosis, thoracolumbar region; M48.07 Spinal stenosis, lumbosacral region | CPT/HCPCS: 72100; 72148 ==

== ENCOUNTER 2022-09-06 10:44 | Outpatient (CLI) | payer MEDICARE | END 2022-09-06 10:45 | disposition home or self-care (01) | LOC: RAD 10:44 | PROVIDERS: ATTEND Nurse Practitioner Family | DX: M47.24 Other spondylosis with radiculopathy, thoracic region (principal); M48.062 Spinal stenosis, lumbar region with neurogenic claudication; M47.816 Spondylosis without myelopathy or radiculopathy, lumbar region; M51.36 Other intervertebral disc degeneration, lumbar region; M46.06 Spinal enthesopathy, lumbar region; M89.38 Hypertrophy of bone, other site; M51.14 Intervertebral disc disorders with radiculopathy, thoracic region; M46.04 Spinal enthesopathy, thoracic region; Z98.890 Other specified postprocedural states | CPT/HCPCS: 72072; 72120 ==

== ENCOUNTER 2022-10-01 09:54 | Outpatient (CLI) | payer MEDICARE | END 2022-10-01 09:55 | disposition home or self-care (01) | LOC: RAD 09:54 | PROVIDERS: ATTEND Specialist | DX: M25.551 Pain in right hip (principal); M16.11 Unilateral primary osteoarthritis, right hip; M17.11 Unilateral primary osteoarthritis, right knee ==

== ENCOUNTER 2023-07-11 08:38 | Outpatient (CLI) | payer MEDICARE ==
[2023-07-11] MEDS ORDERED: E-Z-HD 98% W/W 340GM BOT (x-ray ONLY) ONE (09:20)
[2023-07-11] MEDS ORDERED: Barium Sulfate 96% 176 GM BOT (xray ONLY) ONE (09:20)
== END 2023-07-11 08:39 | disposition home or self-care (01) ==
LOC: RAD 08:38
PROVIDERS: ATTEND Otolaryngology Plastic Surgery within the Head & Neck
DX: K22.5 Diverticulum of esophagus, acquired (principal); K21.9 Gastro-esophageal reflux disease without esophagitis
CPT/HCPCS: 74220

== ENCOUNTER 2024-02-25 15:22 | Outpatient (CLI) | payer MEDICARE | END 2024-02-25 15:23 | disposition home or self-care (01) | LOC: BICRAD 15:22 | PROVIDERS: ATTEND Internal Medicine Rheumatology | DX: M46.1 Sacroiliitis, not elsewhere classified (principal); M51.379 Other intervertebral disc degeneration, lumbosacral region without mention of lumbar back pain or lower extremity pain | CPT/HCPCS: 72190; 72202 ==